=== PATIENT | male | born 1950 | race Caucasian/White ===

== ENCOUNTER 2017-10-02 14:20 | Outpatient (RCR) | payer OTHER, SELFPAY ==
--- NOTE | 2017-10-03 16:07 | PT.OIE ---
Current Diagnoses Benign paroxysmal vertigo, unspecified ear (10/02/17) Provider Visit Care Team Role Provider Type Vera Perales MD Attending Provider Physician Primary Care Provider Specialty: Internal Medicine Address: [address] [place] [address], [facility] Email: Physical Therapy Initial Evaluation PT-OP-A Visit Information Start: 10/02/17 06:35 Freq: Status: Active Protocol: Document 10/02/17 14:30 AMB (Rec: 10/03/17 09:35 AMB [email or web address]) Out-Patient Physical Therapy Visit Information Visit Information Visit Type Initial Evaluation Visit Start Time 14:30 Visit Stop Time 15:15 Total Visit Minutes 45 Visit Number 1 Evaluation Information Evaluation Date 10/02/17 PT-OP-B Current Condition Start: 10/02/17 06:35 Freq: Status: Active Protocol: Document 10/02/17 14:30 AMB (Rec: 10/03/17 09:35 AMB [email or web address]) Current Condition History of Current Condition Onset Date 3 weeks ago Current Complaints dizziness that has subsided History of Current Condition Filemon reports sudden onset dizziness when waking up in the morning about 3 weeks ago. He had what sounds like the Moe-Daroff exercise at Dr. Perales's office, but continues to have vertigo with getting into and out of bed, bending forward, and turning his head quickly. Over the past week that has slowly resolved. Of interest, he notes over the past few years he has had episodic pressure over the occiput, bilateral tinnitus, bilateral ear pressure, and intermittent feeling of palpitations with a feeling of almost passing out. He has had medical workup that has included brain MRI and cardiac monitoring that per the patient came back normal. He currently reports ear pressure , tinnitus, and head pressure, but these symptoms have come and gone over the past few years. The vertigo that started 3 weeks ago, has mostly passed over the past week. 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 PT-OP-C Subjective Start: 10/02/17 06:35 Freq: Status: Active Protocol: Document 10/02/17 14:30 AMB (Rec: 10/03/17 09:35 AMB [email or web address]) OP-PT Subjective Patient Comments Patient Comments Hypertension Patient Questionnaires Dizziness Handicap Inventory DHI Score 30 DHI Functional Impairment 20 to 39% Impaired (Score 20- 39) PT-OP-D Balance Start: 10/02/17 06:35 Freq: Status: Active Protocol: Document 10/02/17 14:30 AMB (Rec: 10/03/17 09:42 AMB [email or web address]) Balance Tests Romberg Romberg increased ankle sway Single Limb Standing Single Limb- Right 10 seconds Single Limb- Left 7 seconds Semi-Tandem Standing Semi-Tandem Standing Balance eyes open: WFL, eyes closed increased ankle sway Tandem Tandem Standing 3 seconds PT-OP-O Vestibular Start: 10/02/17 06:35 Freq: Status: Active Protocol: Document 10/02/17 14:30 AMB (Rec: 10/03/17 09:42 AMB [email or web address]) Vestibular Assessment Visual Testing Smooth Pursuits Horizontal WFL Smooth Pursuits Vertical WFL Saccades Horizontal WFL Saccades Vertical WFL Thrust Head Negative DVA (Line Degradation) 3 Positional Testing [place]-Hallpike Negative Left Negative Right Rolling Test Negative Left Negative Right Supine to Sit Negative Sit to Supine Negative Vestibular Function Tests Fukuda Test negative PT-OP-Q Treatments Start: 10/02/17 06:35 Freq: Status: Active Protocol: Document 10/02/17 14:30 AMB (Rec: 10/03/17 09:46 AMB [email or web address]) Neuro Re-Education Treatment Vestibular Rehabilitation VOR Retraining Details with modified tandem Distance From Target 5 feet Position modified tandem Other Activities 1 Details instruction in self Carol Lymphedema Treatment Patient Education Other Instruction in self Carol for future use, handouts provided. Instruction in anatomy of vestibular system. PT-OP-T Assessment and Plan Start: 10/02/17 06:35 Freq: Status: Active Protocol: Document 10/02/17 14:30 AMB (Rec: 10/03/17 16:07 AMB [email or web address]) Physical Therapy Assessment Rehab Potential Rehabilitation Potential Excellent Evaluation Complexity Number of Personal Factors/Comorbidities 1-2 Number of Body Systems Impaired 1-2 Clinical Presentation at Evaluation Stable Impairments Impairments Vestibular Goals One Impairment Dizziness Short Term Goal (STG) The patient will be independent with a self Carol manuever. STG Duration 4 weeks Assessment Summary Assessment The patient, while his symptoms sound like classic BPPV, did not show nystagmus with [place]-Hallpike testing. Given that his spinning symptoms have resolved for the past week, and he denies any vertigo with bed mobility for the past week, it sounds like what was BPPV has already cleared. His case will be open here for the next month, and he was instructed to call us if any symptoms return. Otherwise he will be discharged at the end of October. Physical Therapy Plan Hold Physical Therapy Reason For Hold Hold for next 30 days to make sure symptoms do not return, then discharge.
--- NOTE | 2017-10-03 16:09 | PT.OPPOC ---
Current Diagnoses Benign paroxysmal vertigo, unspecified ear (10/02/17) Provider Visit Care Team Role Provider Type Vera Perales MD Attending Provider Physician Primary Care Provider Specialty: Internal Medicine Address: [address] [place] [address], [id number] Email: Plan Of Care PT-OP-T Assessment and Plan Start: 10/02/17 06:35 Freq: Status: Active Protocol: Document 10/02/17 14:30 AMB (Rec: 10/03/17 16:07 AMB [email or web address]) Physical Therapy Assessment Rehab Potential Rehabilitation Potential Excellent Evaluation Complexity Number of Personal Factors/Comorbidities 1-2 Number of Body Systems Impaired 1-2 Clinical Presentation at Evaluation Stable Impairments Impairments Vestibular Goals One Impairment Dizziness Short Term Goal (STG) The patient will be independent with a self Carol manuever. STG Duration 4 weeks Assessment Summary Assessment The patient, while his symptoms sound like classic BPPV, did not show nystagmus with [place]-Hallpike testing. Given that his spinning symptoms have resolved for the past week, and he denies any vertigo with bed mobility for the past week, it sounds like what was BPPV has already cleared. His case will be open here for the next month, and he was instructed to call us if any symptoms return. Otherwise he will be discharged at the end of October. Physical Therapy Plan Frequency and Duration Frequency of Treatment 1x/Week Duration of Treatment 5 weeks Plan of Care Start Date 10/02/17 Plan of Care End Date 11/06/17 Therapeutic Interventions Therapeutic Interventions Balance Training Canalithic Repositioning Neuromuscular Re-education Vestibular Rehabilitation Hold Physical Therapy Reason For Hold Hold for next 30 days to make sure symptoms do not return, then discharge. Plan of Care Dates Plan of Care Start Date 10/02/17 Plan of Care End Date 11/06/17 Please Sign and Return: I have reviewed this Plan of Care and certify that the skilled therapy services above are required to meet the patient?s needs. Physician Signature Date Printed Name and Credentials Clinical Instructor Signature Printed Name and Credentials
--- NOTE | 2017-11-21 15:20 | PT.OPDS ---
Current Diagnoses Benign paroxysmal vertigo, unspecified ear (10/02/17) Provider Visit Care Team Role Provider Type Vera Perales MD Attending Provider Physician Primary Care Provider Specialty: Internal Medicine Address: [address] [place] [address], [facility] Email: Visit Number Visit Number 1 Discharge Summary PT-OP-B Current Condition Start: 10/02/17 06:35 Freq: Status: Active Protocol: Document 10/02/17 14:30 AMB (Rec: 10/03/17 09:35 AMB [email or web address]) Current Condition History of Current Condition Onset Date 3 weeks ago Current Complaints dizziness that has subsided History of Current Condition Filemon reports sudden onset dizziness when waking up in the morning about 3 weeks ago. He had what sounds like the Moe-Daroff exercise at Dr. Perales's office, but continues to have vertigo with getting into and out of bed, bending forward, and turning his head quickly. Over the past week that has slowly resolved. Of interest, he notes over the past few years he has had episodic pressure over the occiput, bilateral tinnitus, bilateral ear pressure, and intermittent feeling of palpitations with a feeling of almost passing out. He has had medical workup that has included brain MRI and cardiac monitoring that per the patient came back normal. He currently reports ear pressure , tinnitus, and head pressure, but these symptoms have come and gone over the past few years. The vertigo that started 3 weeks ago, has mostly passed over the past week. 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 PT-OP-C Subjective Start: 10/02/17 06:35 Freq: Status: Active Protocol: Document 10/02/17 14:30 AMB (Rec: 10/03/17 09:35 AMB [email or web address]) OP-PT Subjective Patient Comments Patient Comments Hypertension Patient Questionnaires Dizziness Handicap Inventory DHI Score 30 DHI Functional Impairment 20 to 39% Impaired (Score 20- 39) PT-OP-D Balance Start: 10/02/17 06:35 Freq: Status: Active Protocol: Document 10/02/17 14:30 AMB (Rec: 10/03/17 09:42 AMB [email or web address]) Balance Tests Romberg Romberg increased ankle sway Single Limb Standing Single Limb- Right 10 seconds Single Limb- Left 7 seconds Semi-Tandem Standing Semi-Tandem Standing Balance eyes open: WFL, eyes closed increased ankle sway Tandem Tandem Standing 3 seconds PT-OP-O Vestibular Start: 10/02/17 06:35 Freq: Status: Active Protocol: Document 10/02/17 14:30 AMB (Rec: 10/03/17 09:42 AMB [email or web address]) Vestibular Assessment Visual Testing Smooth Pursuits Horizontal WFL Smooth Pursuits Vertical WFL Saccades Horizontal WFL Saccades Vertical WFL Thrust Head Negative DVA (Line Degradation) 3 Positional Testing Karen-Hallpike Negative Left Negative Right Rolling Test Negative Left Negative Right Supine to Sit Negative Sit to Supine Negative Vestibular Function Tests Fukuda Test negative PT-OP-T Assessment and Plan Start: 10/02/17 06:35 Freq: Status: Active Protocol: Document 11/21/17 15:18 AMB (Rec: 11/21/17 15:20 AMB [email or web address]) Physical Therapy Plan Discharge Physical Therapy Discharge Comments The patient has not been seen since his evaluation. He was told to call back if he had any symptoms and since he has not called for a month and a half we will now discharge him .
== END 2018-01-11 14:10 ==
LOC: PHYS 14:20
PROVIDERS: PCP Internal Medicine; Visit Provider Internal Medicine
DX: H81.10 Benign paroxysmal vertigo, unspecified ear (principal)
CPT/HCPCS: 97112; 97161

== ENCOUNTER → 2017-10-18 10:52 | Outpatient (REF) | payer OTHER, SELFPAY ==
[2017-10-18 11:11] LABS: Alanine Aminotransferase 41 IU/L (21-72); Aspartate Aminotransferase 32 IU/L (17-59); BUN Creatinine Ratio 14.5 (6-22); Blood Urea Nitrogen 16 mg/dL (9-20); Calcium 9.9 mg/dL (8.4-10.2); Carbon Dioxide 29 mmol/L (22-32); Chloride 105 mmol/L (98-107); Cholesterol 155 mg/dL (140-199); Estimated Glomerular Filt Rate > 60.0 mL/min (>60); Glucose 96 mg/dL (80-110); HDL Cholesterol 42 mg/dL (40-60); HEMOLYSIS < 15 (0-50); LDL Cholesterol Calculated 94 mg/dL (<100); Potassium 3.9 mmol/L (3.4-5.1); Sodium 146 mmol/L (137-145); Triglycerides 94 mg/dL (35-150)
== END ==
LOC: LAB 10:52
PROVIDERS: PCP Internal Medicine; Visit Provider Internal Medicine
DX: E78.5 Hyperlipidemia, unspecified (principal); I10 Essential (primary) hypertension
CPT/HCPCS: 80048; 80061; 84450; 84460

== ENCOUNTER → 2017-12-25 11:17 | Outpatient (CLI) | payer OTHER, SELFPAY ==
--- NOTE | 2017-12-25 | DI.CT.S_ITS ---
PROCEDURE: CT ABDOMEN PELVIS WO/W CON INDICATIONS: GROSS HEMATURIA TECHNIQUE: Optional 5 mm thick noncontrast images acquired from the diaphragm to the symphysis pubis. After the administration of intravenous contrast, 5 mm thick images acquired from the diaphragm to the symphysis pubis after a 10-minute delay. 2 mm thick coronal and sagittal reformats were then performed of the kidneys and ureters. For radiation dose reduction, the following was used: automated exposure control, adjustment of mA and/or kV according to patient size. COMPARISON: [facility], CT, KIDNEY/ URETER/BLADDER, 12/05/2011, 13:44. [facility], CT, ANGIOGRAPHY CHEST AND ABDOMEN, 05/15/2016, 14:41. [facility], CT, ANGIOGRAPHY CHEST AND ABDOMEN, 10/24/2016, 14:41. FINDINGS: Image quality: Excellent. Lung bases: Lung bases are clear. Heart size is normal. Tiny hiatal hernia. Urinary system: Both kidneys are normal in size, without hydronephrosis or nephrolithiasis. Bilateral low density nodules are present, compatible with renal cysts, including multiple parapelvic cysts. There is a 1 cm enhancing cortical nodule in the mid right kidney. There is symmetrical bilateral renal enhancement. Renal calyces appear normal in morphology when filled with contrast. Opacified portions of both ureters demonstrate normal caliber. Bladder wall thickness is normal. No calcified bladder stones. Nodular appearance of bladder base may be secondary to markedly enlarged prostate protruding into the bladder base. Prostate measures 6.1 x 6.5 x 6.6 cm and demonstrates heterogeneous enhancement. Other solid organs: Liver is normal in size and enhancement. Gallbladder is normal. Biliary system is non dilated. Pancreas enhances normally. Spleen is normal in size and enhancement. No adrenal nodules. Peritoneum and bowel: Bowel loops demonstrate normal wall thickness and caliber. Normal appendix. No free fluid or air. Nodes and vessels: No retroperitoneal lymphadenopathy. Aorta and inferior vena cava are normal in caliber. Mild aortic calcification consistent with atherosclerosis. Abdominal wall: Small fat-containing periumbilical hernia is noted. Pelvis: No pathologic free pelvic fluid. No inguinal adenopathy. There is fat-containing left inguinal hernia. Bones: No suspicious bony lesions. No vertebral body compression fractures. IMPRESSION: 1. A small 1 cm enhancing cortical nodule in the mid right kidney. This could represent a small renal cell carcinoma. Because of its relative small size, apparent contrast enhancement could be caused by a volume averaging artifact. Ultrasound is suggested for initial evaluation to confirm solid nature of the mass. If the lesion is not visible on ultrasound, MRI may be helpful for further dilation. 2. Multiple renal cysts bilaterally including parapelvic cysts. 3. No renal stones or hydronephrosis. 4. Nodular appearance of bladder base is probably caused by mass effect from markedly enlarged prostate. In this patient with gross hematuria, cystoscopy is suggested. 5. Enlarged prostate with heterogeneous enhancement. Differential diagnosis includes 6. Small fat-containing periumbilical hernia and fat-containing left inguinal hernia. Dictated by: Manuela Aranda M.D. on 12/25/2017 at 17:26 Approved by: Manuela Aranda M.D. on 12/25/2017 at 17:44
[2017-12-25 12:22] LABS: BUN Creatinine Ratio 18.2 (6-22); Blood Urea Nitrogen 20 mg/dL (9-20); Estimated Glomerular Filt Rate > 60.0 mL/min (>60)
== END ==
PROVIDERS: PCP Internal Medicine; Visit Provider Urology
DX: R31.0 Gross hematuria (principal); N28.1 Cyst of kidney, acquired; N28.89 Other specified disorders of kidney and ureter; N40.0 Benign prostatic hyperplasia without lower urinary tract symptoms; K42.9 Umbilical hernia without obstruction or gangrene; K40.90 Unilateral inguinal hernia, without obstruction or gangrene, not specified as recurrent
CPT/HCPCS: 36415; 74178; 82565; 84520; Q9967

== ENCOUNTER → 2018-04-25 10:16 | Outpatient (CLI) | payer OTHER, SELFPAY ==
--- NOTE | 2018-04-25 11:00 | DI.NM.S_ITS ---
PATIENT NAME: MARIA G NI : 1950 EXAM DATE: 04/25/2018 10:53 ORD. : GURWINDER LINDQUIST M.D. CC: MODALITY: NM PATIENT TYPE: Out CONTRAST MEDIA: STATION ID: [id number] FLUORO TIME: PROCEDURE: NM REANNA PERF SPECT REST & STR Rest and exercise myocardial perfusion SPECT with gated imaging and ejection fraction RADIOPHARMACEUTICAL: 26.7 mCi Tc-99m sestamibi IV at rest and 27.2 mCi Tc- 99m sestamibi IV at peak exercise. A [id number] was performed. INDICATIONS: CHEST PAIN COMPARISON: None. CARDIAC STRESS: A standard Ryan treadmill exercise tolerance test was performed by the patient under the supervision of an attending staff. The patient exercised for 7 minutes and 30 seconds; functional aerobic impairment (RUDDY) is +5 %. Hemodynamic data: There is normal blood pressure and heart rate response to exercise stress. Patient achieved 104% of maximum predicted heart rate at peak exercise. Patient achieved 10 METS. Symptoms: Patient denied chest pain during exercise. EKG: No diagnostic EKG changes of ischemia; no ectopy. FINDINGS: Raw data: There is good myocardial labeling by radiotracer. No significant motion artifacts. Xost-bq-ykqaq ratio is 0.37 (normal is less than 0.38 for sestamibi tracer, and less than 0.50 for thallium tracer). Left ventricle function: Gated images demonstrate normal left ventricle wall thickening. No segmental wall motion abnormality. No transient ischemic dilation; TID is 0.90 (normal less than 1.3). The left ventricle resting end-diastolic volume is 96 mL. Left ventricle stress ejection fraction is 72%; normal values are above 45%. Myocardial perfusion: There is a moderate size, moderately severe fixed defect in the inferior wall from apex to the base which is present both at rest and with supine stress Continued Report - Page 2 of 2 PATIENT NAME: MARIA G NI : 1950 EXAM DATE: 04/25/2018 10:53 ORD. : GURWINDER LINDQUIST M.D. CC: MODALITY: NM PATIENT TYPE: Out CONTRAST MEDIA: STATION ID: [id number] FLUORO TIME: imaging and completely resolves on prone imaging, consistent with artifact. No other fixed or reversible perfusion defects. IMPRESSION: -Normal myocardial perfusion study. -Good exercise capacity. -Inferior wall artifact due to diaphragmatic attenuation as above. This was described on the prior study report as well. -No change compared to the report of perfusion study on 02/14/2012. Dictated by: Jesus Welsh on 04/26/2018 at 19:33 Approved by: Jesus Welsh on 04/26/2018 at 19:40
--- NOTE | 2018-04-25 11:35 | PM.TREADMILL ---
Cardiac Stress Test Report Referral & Results Date Patient Seen: 04/25/18 Requesting provider: Vera Perales Indication: Chest pain Rest ECG: Unremarkable Procedure Note: Today following both written and verbal informed consent the patient was exercised according to a standard Ryan protocol patient went for a total of 7 min 30 sec achieving a maximum heart rate of 161 maximum systolic blood pressure of 182. This is approximately 10.1 METS. Exercise was terminated at this point because of fatigue. Patient was also given Cardiolite through a previously started Hep-Lock IV by the nuclear plant construction worker approximately 1 minute prior to the cessation of exercise. No ST-T segment changes Normal heart rate and blood pressure response to exercise Occasional PVC Functional aerobic impairment rates about 5% on the active scale or-5% on the sedentary scale Impression: No evidence of ischemia with average exercise capacity Please see perfusion imaging report as well. Please note: Actual ECG tracings can be found in the PACS system.
== END ==
PROVIDERS: PCP Internal Medicine; Visit Provider Internal Medicine
DX: R07.9 Chest pain, unspecified (principal)
CPT/HCPCS: 78452; 93016; 93017; 93018; A9502

== ENCOUNTER → 2018-08-08 13:39 | Outpatient (CLI) | payer OTHER, SELFPAY ==
--- NOTE | 2018-08-08 | DI.ECHO.S_ITS ---
[facility] +---------+ [facility] +---------+ : : [address] [place] [address] : : : : [id number] : : : : Phone: [phone]+ Echocardiogram Report + + :Name: MARIA G NI Study Date: 08/08/2018 Height: 73 in : :[facility] Weight: 225 lb : : Gender: Male BSA: 2.3 m2 : :: 1950 Age: 67 yrs BP: 124/80 mmHg: :Reason For Study: THORACIC AO ANEURYSM : : Performed By: Jony Smith : :Referring: FABIO MELARA L : + + Interpretation Summary The ejection fraction is estimated to be 60-65%. The ascending aorta is mildly enlarged. There is no significant valvular heart disease. Procedure: A two-dimensional transthoracic echocardiogram with color flow and Doppler was performed. The study quality was technically adequate. There is no prior echocardiogram noted for this patient. The patient was in normal sinus rhythm during the exam. Left Ventricle: The left ventricle is normal in size. There is normal left ventricular wall thickness. The ejection fraction is estimated to be 60-65%. There are no focal wall motion abnormalities. Right Ventricle: The right ventricle is normal in size and function. Atria: The left atrium is mildly dilated. Right atrial size is normal. The interatrial septum is intact with no evidence for an atrial septal defect. Mitral Valve: The mitral valve is normal in structure and function. There is trace mitral regurgitation. Aortic Valve: The aortic valve is trileaflet. The aortic valve opens well. There is trace aortic regurgitation. Tricuspid Valve: The tricuspid valve is normal in structure and function. There is trace tricuspid regurgitation. The right ventricular systolic pressure is estimated to be at least 21 mmHg based on an estimated right atrial pressure of 3 mm Hg. Pulmonic Valve: The pulmonic valve is normal in structure and function. There is trace pulmonic regurgitation. Great Vessels: The aortic root is normal size. The ascending aorta is mildly enlarged. The pulmonary artery is normal size. The IVC is of normal diameter and collapses greater than 50% with a sniff. This suggests a low right atrial pressure of 3 mm Hg. Pericardium/ Pleura There is no pericardial effusion. There is no pleural effusion. MMode/2D Measurements & Calculations LVIDd: 4.8 cm LVOT diam: 2.4 cm LVIDs: 3.1 cm Ao root diam: 3.7 cm FS: 36.2 % Aortic Jxn: 2.9 cm EPSS: 0.21 cm asc Aorta Diam: 3.9 cm IVSd: 0.90 cm Ao Arch Diam (Prox Trans): 3.5 cm LVPWd: 0.86 cm LV webb. diameter/BSA (cm/m^2): 2.1 LV sys. diameter/BSA (cm/m^2): 1.4 LA dimension: 3.9 cm RA long axis: 4.6 cm LA A2 area: 25.1 cm2 RA area: 14.4 cm2 LA A4 area: 19.4 cm2 RA vol: 38.3 ml LA length (vol): 5.1 cm RA : 16.9 ml/m2 LA vol: 81.2 ml IVC diam: 1.6 cm LA vol index: 35.9 ml/m2 Doppler Measurements & Calculations Ao V2 max: 144.2 cm/sec LVOT Max Agustin: 120.1 cm/sec Ao V2 mean: 112.7 cm/sec LV V1 max P.8 mmHg Ao max P.3 mmHg LV V1 VTI: 26.0 cm Ao mean P.2 mmHg SLOANE(I,D): 3.6 cm2 Ao V2 VTI: 31.9 cm SLOANE(V,D): 3.7 cm2 sev ratio: 0.81 SLOANE indexed to BSA (cm^2/m^2): 1.6 MV E max agustin: 72.4 cm/sec TR max agustin: 211.9 cm/sec MV A max agustin: 73.3 cm/sec TR max P.0 mmHg MV E/A: 0.99 PA V2 max: 71.0 cm/sec Med Peak E' Agustin: 7.5 cm/sec PA V2 mean: 55.0 cm/sec E/E' med: 9.6 PA mean P.3 mmHg Lat Peak E' Agustin: 6.7 cm/sec PA pr(Accel): 36.6 mmHg E/E' lat: 10.8 PA Accel Time: 0.08 sec E/e' average: 10.2 MV dec time: 0.17 sec SV(LVOT): 115.2 ml Reading Physician:05:57 PM
--- NOTE | 2018-08-08 13:49 | DI.CT.S_ITS ---
PROCEDURE: CT SINUS SCREEN WO CON INDICATIONS: Facial pressure. Dizziness TECHNIQUE: Noncontrast 3.0 mm axial images acquired from the frontal sinuses to the mid-sella, with coronal and sagittal reformats. For radiation dose reduction, the following was used: automated exposure control, adjustment of mA and/or kV according to patient size. COMPARISON: None. FINDINGS: Image quality: Excellent. Sinuses: Prominent mucous retention cyst versus polyp is present in the left maxillary sinus and two, similar but smaller foci are noted within the right maxillary sinus. Ostiomeatal Complexes: Ostiomeatal complexes are patent. Minimal narrowing is noted on the left. No Kassy cells. Miscellaneous: Visualized intra-orbital contents are normal. No tim bullosa or paradoxical turbinate curvature. No nasal septal deviation. IMPRESSION: 1. Bilateral maxillary sinus mucus retention cyst versus polyps. 2. Mild appearance of left osteomeatal complex narrowing. Dictated by: Ann Shell M.D. on 08/08/2018 at 16:36 Approved by: Ann Shell M.D. on 08/08/2018 at 16:37
== END ==
PROVIDERS: PCP Internal Medicine; Visit Provider Internal Medicine
DX: I71.2 Thoracic aortic aneurysm, without rupture (principal); J32.0 Chronic maxillary sinusitis; R51 Headache; R42 Dizziness and giddiness; Z97.2 Presence of dental prosthetic device (complete) (partial)
CPT/HCPCS: 70486; 93306

== ENCOUNTER 2018-10-07 09:00 | Day surgery (SDC) | payer OTHER, SELFPAY ==
[2018-10-07 09:43] VITALS: BP 127/82; PULSE 64; RESP 15; TEMP 36.2; O2SAT 100; BMI 28.5
[2018-10-07] MEDS: SODIUM CHLORIDE 0.9% 1,000 ML 200 ML IV (10:02)
--- NOTE | 2018-10-07 10:03 | PM.HP.1 ---
History of Present Illness Date Patient Seen: 10/07/18 Time Patient Seen: 10:03 Chief complaint: [id number] Narrative: Patient presents for colorectal screening. They had a previous colonoscopy 5 years ago that demonstrated an adenomatous polyp. On further history denies any recent gastrointestinal symptoms. No nausea, vomiting, abdominal pain, loss of appetite, unexplained weight loss, change in bowel habits, diarrhea, constipation, melena, hematochezia, or bright red blood per rectum. Patient History Medical History History of inguinal hernia (Resolved) Social History household members: spouse Smoking Status: Former smoker Family & Social History Social History: household members spouse Tobacco & Substance use: Smoking Status Former smoker Meds Home Medications Medication Instructions Recorded Confirmed Type alprazolam 0.25 mg PO Q8HP PRN #0 10/24/16 10/07/18 History chlorthalidone 12.5 mg PO QDAY #0 10/24/16 10/07/18 History amlodipine 10 mg tablet 10 mg PO DAILY 09/25/18 10/07/18 History atorvastatin 40 mg tablet 40 mg PO DAILY 09/25/18 10/07/18 History lisinopril 40 mg tablet 40 mg PO DAILY 09/25/18 10/07/18 History metoprolol succinate ER 50 mg 50 mg PO DAILY 09/25/18 10/07/18 History tablet,extended release 24 hr tadalafil 5 mg tablet 5 mg PO DAILY 09/25/18 10/07/18 History ciprofloxacin HCl 250 mg PO BID 10/07/18 10/07/18 History Allergies Allergy/AdvReac Type Severity Reaction Status Date / Time Penicillins [PENICILLINS] Allergy Intermediate HIVES Verified 10/07/18 09:43 Sulfa (Sulfonamide Allergy Intermediate HIVES Verified 10/07/18 09:43 Antibiotics) [SULFA (SULFONAMIDE ANTIBIOTICS)] hydrochlorothiazide Allergy Unknown Verified 10/07/18 09:43 [HYDROCHLOROTHIAZIDE] Review of Systems Review of Systems All systems reviewed & are unremarkable except as noted in HPI and below Exam Vital Signs (past 8 hours): - 10/07/18 09:43 Temperature 97.2 F L Pulse Rate 64 Respiratory Rate 15 Blood Pressure 127/82 Pulse Oximetry 100 Oxygen Delivery Method Room Air Narrative Exam Narrative: General-adult male no acute distress, well nourished HEENT-moist mucous membranes, no scleral icterus Neck-supple with full range of motion, no lymphadenopathy Chest- no labored respirations, clear to auscultation bilaterally Cardiac-regular rate and rhythm Abdomen-soft, nontender, non distended Extremities-no edema, warm well perfused Neurological-alert and oriented x 3. No focal deficits Skin-normal temperature and turgor, no rashes or ulcers Assessment & Plan (1) Screening for colorectal cancer: Current visit: Yes Status: Acute Assessment & Plan narrative: Patient is requiring colorectal screening. Colonoscopy is recommended. Technical details were discussed. Risks, benefits, alternatives explained. Risks including but not limited to sedation, aspiration, bleeding, pain, missed lesion, incomplete examination, need for further radiographic studies, colonic perforation, need for major abdominal surgery, and all attendant risks major surgery were discussed at length. All questions were answered to their satisfaction, and they voiced understanding.
[2018-10-07] MEDS: MIDAZOLAM 5 MG/5 ML VIAL IV (10:32)
[2018-10-07] MEDS: fentaNYL 250 MCG/5 ML INJ IV (10:32)
--- NOTE | 2018-10-07 10:42 | PM.OP.ENDO ---
Operative Date/Time/Diagnoses Date of procedure: 10/07/18 Time of procedure: 10:43 Pre-op diagnosis: Screening colonoscopy. Adenomatous polyp 5 years ago Post-op diagnosis: same Procedure & Clinicians Study performed: Colonoscopy Same procedure as scheduled: Yes Indications: 68-year-old male with a previous adenomatous polyp on colonoscopy 5 years ago returns for routine screening. Surgeon: Lavon Collado Procedure Notes SCOAP/Timeout: Performed Procedure in detail: A digital rectal exam was performed which demonstrated a normal prostate and no masses. Scope was carefully inserted into the rectum and advanced through the colon. The ileocecal valve was reached. The scope was carefully withdrawn. The colon was normal in its appearance. The quality of the prep was excellent. There were no polyps, no masses, no diverticulosis. Scope withdrawal time: 9 Sedation minutes: 28 Specimen(s): none sent Complications: none Impression: Normal colonoscopy Recommendations: Colonscopy in 10 years Disposition: same day surgery
[2018-10-07 10:44] VITALS: BP 100/62; PULSE 63; RESP 16; TEMP 36.3; O2SAT 94
[2018-10-07 10:50] VITALS: BP 99/68; PULSE 64; RESP 16; O2SAT 94
[2018-10-07 10:55] VITALS: BP 105/71; PULSE 74; RESP 17; O2SAT 94
[2018-10-07 11:02] VITALS: BP 106/65; PULSE 87; RESP 15; TEMP 36.4; O2SAT 94
[2018-10-07 11:14] VITALS: BP 102/66; PULSE 80; RESP 16; O2SAT 94
== END 2018-10-07 11:30 | disposition home or self-care (01) ==
PROVIDERS: PCP Internal Medicine; Visit Provider Surgery
PROC: 0DJD8ZZ Inspection of Lower Intestinal Tract, Via Natural or Artificial Opening Endoscopic (ICD-10-PCS; CPT 45378; principal; 2018-10-07 10:45)
DX: Z86.010 Personal history of colon polyps (principal); Z87.891 Personal history of nicotine dependence
CPT/HCPCS: G0105; 99152; J2250; J3010

== ENCOUNTER → 2018-11-29 18:45 | Outpatient (ROUT) | payer OTHER, SELFPAY ==
[2018-11-29 18:59] LABS: Add Manual Diff / Slide Review NO; Basophils Absolute Auto 100 /uL (0-100); Basophils Percent Auto 1.1 % (0-2); Eosinophils Absolute Auto 100 /uL (0-450); Eosinophils Percent Auto 2.2 % (2-4); Hematocrit 44.3 % (41-53); Hemoglobin 15.6 g/dL (13.5-17.5); Lymphocytes Absolute Auto 1300 /uL (1100-4500); Lymphocytes Percent Auto 23.2 % (25-40); Mean Corpuscular HGB Conc 35.2 % (30-36); Mean Corpuscular Hemoglobin 30.5 PG (26-34); Mean Corpuscular Volume 86.7 fL (80-100); Monocytes Absolute Auto 400 /uL (0-900); Monocytes Percent Auto 7.9 % (3-14); Neutrophils Absolute Auto 3700 /uL (1500-7000); Neutrophils Percent Auto 65.6 % (50-75); Platelet Count 270 X10^3/uL (150-400); Red Blood Cell Count 5.11 X10^6/uL (4.5-5.9); Red Cell Distribution Width 13.4 % (11.6-14.8); White Blood Cell Count 5.7 X10^3/uL (4.5-11.0)
[2018-11-29 19:04] LABS: Alanine Aminotransferase 43 IU/L (21-72); Albumin 4.5 g/dL (3.5-5.0); Albumin Globulin Ratio 1.7 (1.0-2.8); Alkaline Phosphatase 50 U/L (38-126); Aspartate Aminotransferase 35 IU/L (17-59); BUN Creatinine Ratio 13.3 (6-22); Bilirubin Total 1.1 mg/dL (0.2-1.3); Blood Urea Nitrogen 16 mg/dL (9-20); Calcium 9.8 mg/dL (8.4-10.2); Carbon Dioxide 28 mmol/L (22-32); Chloride 101 mmol/L (98-107); Estimated Glomerular Filt Rate > 60.0 mL/min (>60); Globulin 2.6 g/dL (1.7-4.1); Glucose 100 mg/dL (80-110); HEMOLYSIS < 15 (0-50); Potassium 3.4 mmol/L (3.4-5.1); Sodium 141 mmol/L (137-145); Total Protein 7.1 g/dL (6.3-8.2)
[2018-11-29 19:51] LABS: Vitamin B12 628 pg/mL (239-931)
[2018-11-29 19:53] LABS: Vitamin D 25 Hydroxy (D3) 39.6 ng/mL (30.0-100.0)
[2018-11-29 20:12] LABS: TSH w/ Reflex to FT4 1.42 uIU/mL (0.47-4.68)
== END ==
PROVIDERS: PCP Internal Medicine; Visit Provider Physician Assistant
DX: R53.83 Other fatigue (principal); I10 Essential (primary) hypertension; E55.9 Vitamin D deficiency, unspecified; E53.8 Deficiency of other specified B group vitamins
CPT/HCPCS: 80053; 82306; 82607; 84443; 85025

== ENCOUNTER 2018-12-18 04:08 | Emergency (ER) | payer OTHER, SELFPAY ==
--- NOTE | 2018-12-18 04:10 | DI.RAD.S_ITS ---
PROCEDURE: XR CHEST 1V INDICATIONS: chest pain TECHNIQUE: One view of the chest was acquired. COMPARISON: [facility], , CHEST 1 VIEW, 03/08/2017, 17:00. FINDINGS: Surgical changes and devices: None. Lungs and pleura: Lungs are clear. No pleural effusions or pneumothorax. Mediastinum: Mediastinal contours appear normal. Heart size is normal. Bones and chest wall: No suspicious bony lesions. Overlying soft tissues appear unremarkable. IMPRESSION: No acute cardiopulmonary disease process. Dictated by: Jhoana Siegel MD, PhD on 12/18/2018 at 8:42 Approved by: Jhoana Siegel MD, PhD on 12/18/2018 at 8:43
--- NOTE | 2018-12-18 04:16 | ED.GENADULT ---
HPI - General Adult General Chief complaint: Chest Pain Stated complaint: left arm stiff, sweating, worried about heart Time Seen by Provider: 12/18/18 04:09 Source: patient Mode of arrival: Ambulatory Limitations: no limitations History of Present Illness HPI narrative: 68-year-old male here for evaluation of multiple complaints to include sharp left-sided chest discomfort. He states that over the past couple days he has had some chest congestion and coughing. They sharpness in his chest has also been over the past couple days as well. He also noticed that last night he had some concerns that his left arm felt very heavy. Has not tried anything for symptoms prior to arrival. Has never had a heart attack in the past. States that his symptoms were not worse with movement or palpation Related Data Home Medications Medication Instructions Recorded Confirmed alprazolam 0.25 mg PO Q8HP PRN #0 10/24/16 10/07/18 chlorthalidone 12.5 mg PO QDAY #0 10/24/16 10/07/18 amlodipine 10 mg tablet 10 mg PO DAILY 09/25/18 10/07/18 atorvastatin 40 mg tablet 40 mg PO DAILY 09/25/18 10/07/18 lisinopril 40 mg tablet 40 mg PO DAILY 09/25/18 10/07/18 metoprolol succinate 50 mg 50 mg PO DAILY 09/25/18 10/07/18 tablet,extended release 24 hr tadalafil 5 mg tablet 5 mg PO DAILY 09/25/18 10/07/18 ciprofloxacin HCl 250 mg PO BID 10/07/18 10/07/18 Allergies Allergy/AdvReac Type Severity Reaction Status Date / Time Penicillins [PENICILLINS] Allergy Intermediate HIVES Verified 10/07/18 09:43 Sulfa (Sulfonamide Allergy Intermediate HIVES Verified 10/07/18 09:43 Antibiotics) [SULFA (SULFONAMIDE ANTIBIOTICS)] hydrochlorothiazide Allergy Unknown Verified 10/07/18 09:43 [HYDROCHLOROTHIAZIDE] Review of Systems Constitutional Constitutional: Denies fever(s) and Denies headache(s) ENT Ears, Nose, Mouth, and Throat: Denies headache(s) Cardiovascular Cardiovascular: Reports chest pain (Sharp left-sided chest pain) and Denies dyspnea Respiratory Respiratory: Reports chest congestion and Denies dyspnea Gastrointestinal Gastrointestinal: Denies abdominal pain Musculoskeletal Comments: Left arm heaviness Integumentary/Breasts Skin/Breast: Denies lesions and Denies rash Neurologic Neurologic: Denies behavioral changes and Denies headache(s) Psychiatric Psychiatric: Denies behavioral changes Hematologic/Lymphatic Hematologic/Lymphatic: Denies easy bleeding and Denies easy bruising Patient History Medical History (Updated 12/18/18 @ 05:20 by Brendan Ba DO) Atypical chest pain (Inactive) Chest wall pain (Inactive) High cholesterol (Inactive) History of inguinal hernia (Resolved) HTN (hypertension) (Inactive) Palpitations (Inactive) Screening for colorectal cancer (Inactive) Transient ischemic attack, acute (Inactive) Surgical History (Updated 12/18/18 @ 05:16 by Brendan Ba DO) H/O hernia repair (Inactive) Social History household members: spouse Smoking Status: Former smoker Exam Initial Vital Signs Initial Vital Signs: Vital Signs Temperature 98.5 F 12/18/18 04:17 Pulse Rate 66 12/18/18 04:17 Respiratory Rate 16 12/18/18 04:17 Blood Pressure 138/87 12/18/18 04:17 Pulse Oximetry 99 12/18/18 04:17 Const General: cooperative and comfortable Orientation: alert, awake and oriented x3 HENMT Head: normal to inspection and normocephalic Chest Chest: No crepitus and No tenderness Resp Effort & Inspection: normal respiratory effort Auscultation: clear to auscultation bilaterally Cardio Rate: regular rate Rhythm: regular rhythm GI Inspection: non-distended Palpation: soft and No firm Skin Lesions: no lesions Rashes: no rashes Neuro General: alert and awake Cognition: normal cognition Speech: speech normal Motor: muscle tone normal throughout Extrem General: normal to inspection and capillary refill normal Psych Appearance: grossly normal and well kempt Course Orders Ordered: ED Orders 12/18/18 04:10 XR chest 1V Stat 12/18/18 04:11 EKG-12 Lead Stat 12/18/18 04:26 Basic Metabolic Panel Stat Complete Blood Count AUTO DIFF Stat Troponin I Stat Vital Signs Vital signs: Vital Signs - 8 hr 12/18/18 04:17 Temperature 98.5 F Pulse Rate 66 Respiratory Rate 16 Blood Pressure 138/87 Pulse Oximetry 99 Medical Decision Making Lab Data Lab results reviewed: Yes I reviewed the patient's lab results. Result diagrams: 12/18/18 04:26 12/18/18 04:26 Labs: Lab Results 12/18/18 12/18/18 Range/Units 04:26 04:26 WBC 5.4 (4.5-11.0) X10^3/uL RBC 5.08 (4.5-5.9) X10^6/uL Hgb 15.6 (13.5-17.5) g/dL Hct 43.9 (41-53) % MCV 86.3 (80-100) fL MCH 30.7 (26-34) PG MCHC 35.6 (30-36) % RDW 13.4 (11.6-14.8) % Plt Count 268 (150-400) X10^3/uL Neut % (Auto) 57.0 (50-75) % Lymph % (Auto) 27.8 (25-40) % Branch % (Auto) 10.0 (3-14) % Eos % (Auto) 3.9 (2-4) % Baso % (Auto) 1.3 (0-2) % Neut # (Auto) 3000 (4657-4819) /uL Lymph # (Auto) 1500 (9524-5799) /uL Branch # (Auto) 500 (0-900) /uL Eos # (Auto) 200 (0-450) /uL Baso # (Auto) 100 (0-100) /uL Sodium 142 (137-145) mmol/L Potassium 3.6 (3.4-5.1) mmol/L Chloride 103 (98-107) mmol/L Carbon Dioxide 29 (22-32) mmol/L BUN 28 H (9-20) mg/dL Creatinine 1.30 H (0.66-1.25) mg/dL Estimated GFR 55.2 L (>60) mL/min BUN/Creatinine Ratio 21.5 (6-22) Glucose 112 H (80-110) mg/dL Calcium 9.8 (8.4-10.2) mg/dL Troponin I < 0.012 (0.01-0.034) ng/mL Imaging Data Chest x-ray: Attestation: I personally reviewed and interpreted this imaging study as follows: My impression: No pneumonia, no pneumothorax ECG Data Attestation: I personally reviewed and interpreted this ECG as follows: Prior ECG tracings: not available for review Interpretation: Sinus rhythm Normal axis Ventricular rate is [address] T wave changes MDM Narrative Medical decision making narrative: Patient had a perfusion study in April of this year. Had an echo in July of this year. Also had a exercise stress test in April of this year. His EKG is unremarkable. Patient has had symptoms for the past couple days. His chest x-ray is negative. Troponins negative. It was sharp left-sided chest discomfort. I have low suspicion for ACS. Patient is not tachycardic. Not hypoxic. Not tachypneic. I discussed all of the findings with the patient. We discussed his risk factors with regard to coronary artery disease. Feel that we can hold on further workup for now. Informed him that he should contact his primary provider for follow-up. He expressed understanding and agreement with plan. Discharge Plan Departure Patient Disposition: Home Clinical Impression: Atypical chest pain Instructions: DI for Atypical Chest Pain Activity Restrictions/Additional Instructions: Continue all of your medications as directed. I do recommend you contact your primary provider for follow-up. Return to the emergency department for any new or worsening symptoms Prescriptions: No Action chlorthalidone 25 MG tablet 12.5 mg PO QDAY Qty: 0 RF: 0 alprazolam 0.25 MG tablet 0.25 mg PO Q8HP PRN (Reason: Anxiety) Qty: 0 RF: 0 ciprofloxacin HCl 250 mg Tablet 250 mg PO BID RF: 0 atorvastatin 40 mg tablet 40 mg PO DAILY RF: 0 metoprolol succinate 50 mg tablet extended release 24 hr 50 mg PO DAILY RF: 0 lisinopril 40 mg tablet 40 mg PO DAILY RF: 0 tadalafil [Cialis] 5 mg tablet 5 mg PO DAILY RF: 0 amlodipine 10 mg tablet 10 mg PO DAILY RF: 0 Referrals: Vera Perales MD [Primary Care Provider] -
[2018-12-18 04:17] VITALS: BP 138/87; PULSE 66; RESP 16; TEMP 36.9; O2SAT 99; BMI 29.7
[2018-12-18 04:35] LABS: Add Manual Diff / Slide Review NO; Basophils Absolute Auto 100 /uL (0-100); Basophils Percent Auto 1.3 % (0-2); Eosinophils Absolute Auto 200 /uL (0-450); Eosinophils Percent Auto 3.9 % (2-4); Hematocrit 43.9 % (41-53); Hemoglobin 15.6 g/dL (13.5-17.5); Lymphocytes Absolute Auto 1500 /uL (1100-4500); Lymphocytes Percent Auto 27.8 % (25-40); Mean Corpuscular HGB Conc 35.6 % (30-36); Mean Corpuscular Hemoglobin 30.7 PG (26-34); Mean Corpuscular Volume 86.3 fL (80-100); Monocytes Absolute Auto 500 /uL (0-900); Neutrophils Absolute Auto 3000 /uL (1500-7000); Platelet Count 268 X10^3/uL (150-400); Red Blood Cell Count 5.08 X10^6/uL (4.5-5.9); Red Cell Distribution Width 13.4 % (11.6-14.8); White Blood Cell Count 5.4 X10^3/uL (4.5-11.0)
[2018-12-18 04:44] LABS: BUN Creatinine Ratio 21.5 (6-22); Blood Urea Nitrogen 28 mg/dL (9-20); Calcium 9.8 mg/dL (8.4-10.2); Carbon Dioxide 29 mmol/L (22-32); Chloride 103 mmol/L (98-107); Estimated Glomerular Filt Rate 55.2 mL/min (>60); Glucose 112 mg/dL (80-110); HEMOLYSIS < 15 (0-50); Potassium 3.6 mmol/L (3.4-5.1); Sodium 142 mmol/L (137-145)
[2018-12-18 04:56] LABS: Troponin I < 0.012 ng/mL (0.01-0.034)
[2018-12-18 05:16] VITALS: BP 114/71; PULSE 64; RESP 12; O2SAT 95
== END 2018-12-18 05:28 | disposition home or self-care (01) ==
PROVIDERS: Emergency Provider Emergency Medicine; PCP Internal Medicine
DX: R07.89 Other chest pain (principal); R05 Cough
CPT/HCPCS: 36415; 71045; 80048; 84484; 85025; 93005; 93010; 99283; 99285

== ENCOUNTER → 2019-06-30 13:37 | Outpatient (CLI) | payer OTHER, MEDICARE, SELFPAY ==
--- NOTE | 2019-06-30 | DI.ECHO.S_ITS ---
[facility] +---------+ : : [address] : : : : [id number] : : : : Phone: [phone] Echocardiogram Report + + :Name: MARIA G NI Study Date: 06/30/2019 Height: 71 in : :[facility] Weight: 230 lb : : Gender: Male BSA: 2.2 m2 : :: 1950 Age: 68 yrs BP: 142/78 mmHg: :Reason For Study: Chest pain : :Ordering Physician: Gurwinder PeralesPerformed By: Cristin Jones : :Referring: GURWINDER PERALES : + + Interpretation Summary The left ventricle is normal in size and wall thickness. The ejection fraction is estimated to be 60-65%. Diastolic parameters suggest probable normal left ventricular diastolic function and normal filling pressures. The right ventricle is normal in size and function. The right ventricular systolic pressure is estimated to be at least 24 mmHg based on an estimated right atrial pressure of 3 mm Hg. The left atrial size is normal. Right atrial size is normal. There is mild mitral regurgitation. There is no other significant valvular heart disease. The ascending aorta is mildly enlarged. No significant changes since prior study. Procedure: A two-dimensional transthoracic echocardiogram with color flow and Doppler was performed. The study quality was technically adequate. Comparison is made with the echocardiogram of 08/08/2018. The patient was in normal sinus rhythm during the exam. The patient had occasional PVCs during the exam. The heart rate ranged between 59-66 bpm during the study. Left Ventricle: The left ventricle is normal in size and wall thickness. The ejection fraction is estimated to be 60-65%. Diastolic parameters suggest probable normal left ventricular diastolic function and normal filling pressures. Right Ventricle: The right ventricle is normal in size and function. Atria: The left atrial size is normal. Right atrial size is normal. There is no Doppler evidence for an interatrial shunt. Mitral Valve: The mitral valve is normal in structure and function. There is mild mitral regurgitation. Aortic Valve: The aortic valve is not well visualized. The aortic valve opens well. There is no aortic valve stenosis. No aortic regurgitation is present. Tricuspid Valve: The tricuspid valve is normal in structure and function. There is mild tricuspid regurgitation. The right ventricular systolic pressure is estimated to be at least 24 mmHg based on an estimated right atrial pressure of 3 mm Hg. Pulmonic Valve: The pulmonic valve is not well seen, but is grossly normal. There is no pulmonic valvular regurgitation. There is no other significant valvular heart disease. Great Vessels: The aortic root is normal size. The ascending aorta is mildly enlarged. The IVC is of normal diameter and collapses greater than 50% with a sniff. This suggests a low right atrial pressure of 3 mm Hg. Pericardium/ Pleura There is no pericardial effusion. There is no pleural effusion. MMode/2D Measurements & Calculations LVIDd: 4.8 cm LVOT diam: 2.3 cm LVIDs: 3.1 cm Ao root diam: 3.5 cm FS: 34.9 % asc Aorta Diam: 3.8 cm EPSS: 0.46 cm IVSd: 0.94 cm LVPWd: 0.84 cm LV webb. diameter/BSA (cm/m^2): 2.2 LV sys. diameter/BSA (cm/m^2): 1.4 LA A2 area: 17.7 cm2 RA long axis: 4.6 cm LA A4 area: 14.0 cm2 RA area: 13.8 cm2 LA length (vol): 4.6 cm RA vol: 35.3 ml LA vol: 45.7 ml RA : 15.8 ml/m2 LA vol index: 20.4 ml/m2 IVC diam: 1.7 cm RVD1 (basal): 3.8 cm TAPSE: 1.9 cm Doppler Measurements & Calculations Ao V2 max: 150.8 cm/sec LVOT Max Agustin: 143.8 cm/sec Ao V2 mean: 95.7 cm/sec LV V1 max P.3 mmHg Ao max P.1 mmHg LV V1 VTI: 28.6 cm Ao mean P.4 mmHg SLOANE(I,D): 4.0 cm2 Ao V2 VTI: 29.8 cm SLOANE(V,D): 4.0 cm2 sev ratio: 0.96 SLOANE indexed to BSA (cm^2/m^2): 1.8 MV E max agustin: 74.9 cm/sec TR max agustin: 228.6 cm/sec MV A max agustin: 76.5 cm/sec TR max P.9 mmHg MV E/A: 0.98 PA V2 max: 74.3 cm/sec MV dec time: 0.19 sec PA V2 mean: 54.5 cm/sec PA mean P.4 mmHg SV(LVOT): 120.3 ml Reading Physician:02:52 PM
== END ==
PROVIDERS: PCP Internal Medicine; Referring Provider Internal Medicine; Visit Provider Internal Medicine
DX: I08.1 Rheumatic disorders of both mitral and tricuspid valves (principal); I77.89 Other specified disorders of arteries and arterioles; R07.9 Chest pain, unspecified
CPT/HCPCS: 93306

== ENCOUNTER → 2019-08-20 11:43 | Outpatient (CLI) | payer OTHER, MEDICARE, SELFPAY ==
[2019-08-24 10:41] LABS: COVID19 Sendout Not Detected (Not Detected)
== END ==
PROVIDERS: PCP Internal Medicine; Visit Provider Physician Assistant
DX: J02.9 Acute pharyngitis, unspecified (principal)
CPT/HCPCS: 87635

== ENCOUNTER → 2019-11-21 10:35 | Outpatient (CLI) | payer OTHER, MEDICARE, SELFPAY | PROVIDERS: PCP Internal Medicine; Referring Provider Student in an Organized Health Care Education/Training Program; Visit Provider Student in an Organized Health Care Education/Training Program | DX: R30.0 Dysuria (principal) | CPT/HCPCS: 87086 ==

== ENCOUNTER → 2019-12-17 13:05 | Outpatient (CLI) | payer OTHER, MEDICARE, SELFPAY ==
--- NOTE | 2019-12-17 | DI.CT.S_ITS ---
PROCEDURE: CT CHEST W CON INDICATIONS: Chest pain. Family history of aneurysm. TECHNIQUE: After the administration of intravenous contrast, 5 mm thick sections acquired from the pulmonary apices to the posterior costophrenic angles. 1 mm axial lung, 5 mm thick coronal and sagittal reformats and 7 mm axial MIP were acquired. For radiation dose reduction, the following was used: automated exposure control, adjustment of mA and/or kV according to patient size. COMPARISON: [facility], CT, ANGIOGRAPHY CHEST AND ABDOMEN, 05/15/2016, 14:41. [facility], CT, ANGIOGRAPHY CHEST AND ABDOMEN, 10/24/2016, 14:41. [facility], CR, CHEST 1 VIEW, 03/08/2017, 17:00. FINDINGS: Image quality: Excellent. Lungs and pleura: There is a left diaphragmatic hernia. No acute air space opacities. There is a spiculated, sub solid nodule in the right upper lobe measuring 8 mm (series 3, image 71), similar in size but slightly increased in density when compared to the last chest CT dated 05/15/2016. A 5 x 8 mm scar-like density in the left upper lobe is also noted, slightly decreased in size. No pleural effusions or pneumothorax. Central and peripheral airways are patent and normal in caliber. Mediastinum: Heart size is normal. No pericardial effusion. There is mild coronary artery atherosclerosis. No mediastinal or hilar adenopathy by size criteria. Thoracic aorta and central pulmonary arteries are normal in size. Esophagus is normal in caliber. Tiny hiatal hernia. Bones and chest wall: No suspicious bony lesions. No vertebral body compression fractures. No axillary or supraclavicular adenopathy by size criteria. Thyroid gland is normal. Abdomen: There is a 2 cm exophytic cyst in the superior pole of the left kidney. Hepatic steatosis. IMPRESSION: 1. A cause for chest pain is not definitively identified. No aortic aneurysms. 2. Mild coronary artery atherosclerosis. 3. An 8 mm spiculated, subsolid nodular density in the right upper lobe has demonstrates increased density of the unchanged in size. A follow-up CT is suggested in 12 months. 4. Stable scar-like density in the left upper lobe. Fleischner Society criteria for SUB-SOLID lung nodule followup. Solitary pure ground-glass nodules5 mm or lessNo followup needed. >5 mm3 mo follow-up CT to confirm persistence. Then annual CT for 3 years. Part-solid nodules3 mo follow-up CT to confirm persistence. If persistent with solid component <5 mm, annual CT for at least 3 years. If solid component is 5 mm or more, biopsy or surgical resection. Consider PET-CT for lesions > 10 mm. Multiple sub-solid nodulesPure ground glass nodules [address] at 2 and 4 years. Pure ground glass nodules >5 mm without dominant lesion. [address] to confirm persistence, then annual followup CT for at least 3 years. Dominant nodule(s) with part-solid or solid component. [address] to confirm persistence. If persistent, consider biopsy or surgical resection, jennifer if lesions have >5 mm solid component. Dictated by: Manuela Aranda M.D. on 12/17/2019 at 16:53 Approved by: Manuela Aranda M.D. on 12/17/2019 at 17:57
[2019-12-17 13:44] LABS: Alanine Aminotransferase 32 IU/L (<50); Aspartate Aminotransferase 35 IU/L (17-59); Cholesterol 162 mg/dL (140-199); HDL Cholesterol 34 mg/dL (40-60); LDL Cholesterol Calculated 91 mg/dL (<100); Triglycerides 184 mg/dL (35-150)
[2019-12-17 14:05] LABS: Estimated Glomerular Filt Rate 50.5 mL/min (>60)
== END ==
PROVIDERS: PCP Internal Medicine; Referring Provider Internal Medicine; Visit Provider Internal Medicine
DX: R07.9 Chest pain, unspecified (principal); R91.1 Solitary pulmonary nodule; I25.10 Atherosclerotic heart disease of native coronary artery without angina pectoris; E78.5 Hyperlipidemia, unspecified; K44.9 Diaphragmatic hernia without obstruction or gangrene; N28.1 Cyst of kidney, acquired; K76.0 Fatty (change of) liver, not elsewhere classified; Z84.89 Family history of other specified conditions
CPT/HCPCS: 36415; 71260; 80061; 82565; 84450; 84460; Q9967

== ENCOUNTER → 2020-07-15 19:18 | Outpatient (ROUT) | payer OTHER, MEDICARE, SELFPAY ==
[2020-07-15 19:24] LABS: Hematocrit 44.8 % (41-53); Mean Corpuscular HGB Conc 35.8 % (30-36); Mean Corpuscular Hemoglobin 30.8 PG (26-34); Mean Corpuscular Volume 86.1 fL (80-100); Platelet Count 270 X10^3/uL (150-400); Red Cell Distribution Width 12.9 % (11.6-14.8)
[2020-07-15 19:32] LABS: Potassium 3.9 mmol/L (3.4-5.1)
[2020-07-15 19:35] LABS: Alanine Aminotransferase 32 IU/L (<50); Albumin 4.7 g/dL (3.5-5.0); Albumin Globulin Ratio 1.7 (1.0-2.8); Alkaline Phosphatase 59 U/L (38-126); Aspartate Aminotransferase 42 IU/L (17-59); Bilirubin Total 1.1 mg/dL (0.2-1.3); Blood Urea Nitrogen 16 mg/dL (9-20); C-Reactive Protein Quant < 0.5 mg/dL (<1.0); Carbon Dioxide 24 mmol/L (22-32); Chloride 103 mmol/L (98-107); Estimated Glomerular Filt Rate > 60.0 mL/min (>60); Globulin 2.8 g/dL (1.7-4.1); Glucose 94 mg/dL (80-110); HEMOLYSIS 21 (0-50); Sodium 138 mmol/L (137-145); Total Protein 7.5 g/dL (6.3-8.2)
[2020-07-15 20:03] LABS: TSH w/ Reflex to FT4 1.49 uIU/mL (0.47-4.68)
[2020-07-16 05:30] LABS: Vitamin B12 634 pg/mL (239-931)
== END ==
PROVIDERS: PCP Internal Medicine; Visit Provider Internal Medicine
DX: R53.82 Chronic fatigue, unspecified (principal); I10 Essential (primary) hypertension
CPT/HCPCS: 80053; 82607; 84443; 85027; 86140

== ENCOUNTER 2021-07-31 17:03 | Emergency (ER) | payer OTHER, MEDICARE, SELFPAY ==
[2021-07-31 17:26] VITALS: BP 167/96; PULSE 83; RESP 20; TEMP 36.3; O2SAT 97; BMI 30.9
--- NOTE | 2021-07-31 18:43 | ED.EXTPRO ---
HPI - Extremity Problem General Chief complaint: Extremity Problem,Nontraumatic Stated complaint: pain in left leg behind thigh Time Seen by Provider: 07/31/21 18:43 Source: patient Mode of arrival: Family Vehicle History of Present Illness HPI Narrative: Patient is a 70-year-old male history of hypertension hyperlipidemia, depression presenting with left posterior thigh and buttock pain ongoing for 1 week. He does not remember any specific injury. He occasionally gets sharp shooting pain down his leg it sometimes hurts in his hip. But he really does not remember what happened he has no back pain. Almost pinpoint. He was reading on the Internet and thought that it might be a blood clot. He has not traveled anywhere he has not been hospitalized she has no prior history of blood clots. He denies any chest pain shortness of breath. It seems to be little bit worse with walking. He has not taken anything for pain. Related Data Home Medications Medication Instructions Recorded Confirmed alprazolam 0.25 mg tablet 0.25 mg PO Q8HP PRN Anxiety ##0 10/24/16 06/30/19 chlorthalidone 25 mg tablet 12.5 mg PO QDAY ##0 10/24/16 06/30/19 amlodipine 10 mg tablet 10 mg PO DAILY 09/25/18 06/30/19 atorvastatin 40 mg tablet 40 mg PO DAILY 09/25/18 06/30/19 lisinopril 40 mg tablet 40 mg PO DAILY 09/25/18 06/30/19 metoprolol succinate 50 mg 50 mg PO DAILY 09/25/18 06/30/19 tablet,extended release 24 hr tadalafil 5 mg tablet (Cialis) 5 mg PO DAILY 09/25/18 06/30/19 Allergies Allergy/AdvReac Type Severity Reaction Status Date / Time Penicillins [PENICILLINS] Allergy Intermediate HIVES Verified 07/31/21 17:26 Sulfa (Sulfonamide Allergy Intermediate HIVES Verified 07/31/21 17:26 Antibiotics) [SULFA (SULFONAMIDE ANTIBIOTICS)] hydrochlorothiazide Allergy Unknown Verified 07/31/21 17:26 [HYDROCHLOROTHIAZIDE] Review of Systems Review of Systems Narrative: GENERAL: Denies chills,fever HEENT: Denies throat pain RESPIRATORY: Denies dyspnea, cough, wheezing CARDIOVASCULAR: Denies chest pain, palpitations GASTROINTESTINAL: Denies nausea, vomiting MUSCULOSKELETAL: See HPI SKIN: No rash, no laceration, no pruritus NEUROLOGIC: Denies weakness, dizziness, headache, numbness 8 point review of systems is negative except for those stated above and HPI Patient History Medical History Atypical chest pain Benign prostate hyperplasia Chest wall pain High cholesterol History of inguinal hernia HTN (hypertension) Obstructive sleep apnea Palpitations Screening for colorectal cancer Transient ischemic attack, acute Surgical History H/O hernia repair Social History marital status: household members: spouse lives independently: Yes caregiver/support person: No housing: house occupational status: employed (retired) Smoking Status: Former smoker alcohol intake: never substance use type: does not use Smoking Status: Former smoker tobacco type: cigarettes alcohol intake frequency: 0-2 drinks per day Substance Use Type: does not use Exam Initial Vital Signs Initial Vital Signs: Vital Signs Temperature 97.3 F L 07/31/21 17:26 Pulse Rate 83 07/31/21 17:26 Respiratory Rate 20 07/31/21 17:26 Blood Pressure 167/96 H 07/31/21 17:26 Pulse Oximetry 97 07/31/21 17:26 Oxygen Delivery Method 07/31/21 17:26 GENERAL: Well-appearing, well-nourished and in no acute distress. CARDIOVASCULAR: peripheral pulses in tact, cap refill <2 sec RESPIRATORY: No respiratory distress, speaks in full sentences without difficulty EXTREMITIES: Normal range of motion, no clubbing or edema. Neurovascularly intact Left lower extremity posterior thigh near the buttock there is no erythema. No significant swelling appreciated. No pain behind the calf NEUROLOGICAL: Cranial nerves II through XII grossly intact. Normal gait and speech. SKIN: Warm, dry, no petechiae, no rashes or lesions. Scores Wells' Criteria for DVT Active Cancer (Treatment within 6 months): No Bedridden recently >3 days or major surgery within 4 weeks: No Calf Swelling >3cm compared to other leg: No Collateral (nonvericose) superficial veins present: No Entire leg swollen: No Localized tenderness along the deep vein system: No Pitting edema, confined to symtomatic leg: No Paralysis, paresis, or recent plaster immobilization of ext: No Previously documented DVT: No Alternative dx to DVT as likely or more likely: No Wells' criteria for DVT: 0 Course Vital Signs Vital signs: Vital Signs - 8 hr 07/31/21 17:26 07/31/21 19:10 Temperature 97.3 F L Pulse Rate 83 68 Respiratory Rate 20 18 Blood Pressure 167/96 H 148/86 H Pulse Oximetry 97 96 Oxygen Delivery Method Room Air Room Air MDM - Extremity (Nontraumatic) MDM Narrative Medical decision making narrative: Patient history signs and symptoms are not consistent with DVT. This is more likely musculoskeletal it has been ongoing for 1 week. Recommend Tylenol ibuprofen and monitoring. Discharge Plan Departure Patient Disposition: Home Clinical Impression: Muscle strain of left thigh Instructions: DI for Muscle Strain Activity Restrictions/Additional Instructions: *You have been diagnosed with probable left leg strain *What to do: At this time low risk of blood clot. However please continue to monitor. Recommend light walking and stretching. May also try [id number] medications to help with pain *Continue to take medications as directed Tylenol 650 mg every 4-6 hours if needed for [id number] pain Ibuprofen 600 mg every 6-8 hours if needed for sfgk-hs-[id number] pain *Follow up with your primary care provider in 2-3 days or call [phone] *Return to ER if you should have increasing pain swelling chest pain palpitations shortness of breath or any new, worsening or concerning symptoms Prescriptions: No Action chlorthalidone 25 MG tablet 12.5 mg PO QDAY Qty: 0 alprazolam 0.25 MG tablet 0.25 mg PO Q8HP PRN (Reason: Anxiety) Qty: 0 Rx Instructions: flying only atorvastatin 40 mg tablet 40 mg PO DAILY metoprolol succinate 50 mg tablet extended release 24 hr 50 mg PO DAILY lisinopril 40 mg tablet 40 mg PO DAILY tadalafil [Cialis] 5 mg tablet 5 mg PO DAILY amlodipine 10 mg tablet 10 mg PO DAILY Referrals: Vera Perales MD [Primary Care Provider] - Visit Report Forms: Patient Portal/API
[2021-07-31 19:10] VITALS: BP 148/86; PULSE 68; RESP 18; O2SAT 96
== END 2021-07-31 19:11 | disposition home or self-care (01) ==
PROVIDERS: Emergency Provider Emergency Medicine; PCP Internal Medicine
DX: S76.912A Strain of unspecified muscles, fascia and tendons at thigh level, left thigh, initial encounter (principal)
CPT/HCPCS: 99281

== ENCOUNTER → 2021-09-06 09:26 | Outpatient (CLI) | payer OTHER, MEDICARE, SELFPAY ==
--- NOTE | 2021-09-06 | DI.RAD.S_ITS ---
PROCEDURE: XR HIP W PEL IF DONE LT 2V INDICATIONS: Lt Hip Pain TECHNIQUE: AP pelvis with lateral view(s) of the left hip(s). COMPARISON: None. FINDINGS: Bones: No fractures or dislocations. Pelvic ring appears intact. No suspicious bony lesions. Moderate bilateral degenerative hip joint space narrowing with minimal periarticular osteophytes. No erosions. Soft tissues: The visualized bowel gas pattern is normal. No suspicious soft tissue calcifications. IMPRESSION: Moderate bilateral hip osteoarthritis. Dictated by: Ann Shell M.D. on 09/06/2021 at 12:37 Approved by: Ann Shell M.D. on 09/06/2021 at 12:37
== END ==
PROVIDERS: PCP Internal Medicine; Referring Provider Family Medicine; Visit Provider Family Medicine
DX: M16.0 Bilateral primary osteoarthritis of hip (principal)
CPT/HCPCS: 73502

== ENCOUNTER → 2021-10-30 13:42 | Outpatient (CLI) | payer OTHER, MEDICARE, SELFPAY | PROVIDERS: PCP Internal Medicine; Visit Provider Registered Nurse | DX: L03.012 Cellulitis of left finger (principal) | CPT/HCPCS: 87070; 87077; 87147; 87205 ==

== ENCOUNTER 2022-03-02 06:25 | Observation (INO) | payer OTHER, MEDICARE, SELFPAY ==
[2022-03-02] VITALS (12 sets, daily range): BP systolic 138–188; BP diastolic 81–99; PULSE 54–83; RESP 18–19; TEMP 36.3; O2SAT 96–98; BMI 31.6
--- NOTE | 2022-03-02 06:40 | DI.RAD.S_ITS ---
PROCEDURE: XR CHEST 1V INDICATIONS: chest pain TECHNIQUE: One view of the chest was acquired. COMPARISON: [facility], , XR CHEST 1V, 12/18/2018, 4:21. [facility], , CHEST 1 VIEW, 03/08/2017, 17:00. FINDINGS: Surgical changes and devices: None. Lungs and pleura: Lungs appear clear. No pleural effusions or pneumothorax. Mediastinum: Mediastinal contours appear unchanged. Heart size is within normal limits. Bones and chest wall: No suspicious bony lesions. Overlying soft tissues appear unremarkable. IMPRESSION: No acute cardiopulmonary abnormality identified. Small pulmonary nodule seen on prior CT from 2019 is not appreciated on this exam which could be due to its small size. CT chest should be considered for further evaluation if not yet performed. Dictated by: Floyd Garg M.D. on 03/02/2022 at 7:58 Approved by: Floyd Garg M.D. on 03/02/2022 at 8:02
[2022-03-02 06:52] LABS: Add Manual Diff / Slide Review NO; Basophils Absolute Auto 100 /uL (0-100); Basophils Percent Auto 1.8 % (0-2); Eosinophils Absolute Auto 200 /uL (0-450); Eosinophils Percent Auto 3.7 % (2-4); Hematocrit 45.9 % (41-53); Hemoglobin 16.1 g/dL (13.5-17.5); Lymphocytes Absolute Auto 1400 /uL (1100-4500); Lymphocytes Percent Auto 27.3 % (25-40); Mean Corpuscular Hemoglobin 29.7 PG (26-34); Mean Corpuscular Volume 84.8 fL (80-100); Monocytes Absolute Auto 700 /uL (0-900); Monocytes Percent Auto 12.8 % (3-14); Neutrophils Absolute Auto 2800 /uL (1500-7000); Neutrophils Percent Auto 54.4 % (50-75); Platelet Count 277 X10^3/uL (150-400); Red Blood Cell Count 5.42 X10^6/uL (4.5-5.9); Red Cell Distribution Width 13.6 % (11.6-14.8); White Blood Cell Count 5.2 X10^3/uL (4.5-11.0)
[2022-03-02 06:54] LABS: INR 1.1 (0.9-1.3); Prothrombin Time 12.4 SECONDS (10.1-12.7)
[2022-03-02 06:56] LABS: PTT Partial Thromboplastin Tim 33 SECONDS (26-36)
[2022-03-02 06:58] LABS: Alanine Aminotransferase 33 IU/L (<50); Alkaline Phosphatase 58 U/L (38-126); Aspartate Aminotransferase 31 IU/L (17-59); BUN Creatinine Ratio 18.9 (6-22); Bilirubin Total 0.8 mg/dL (0.2-1.3); Blood Urea Nitrogen 23 mg/dL (9-20); Calcium 9.4 mg/dL (8.4-10.2); Carbon Dioxide 26 mmol/L (22-32); Chloride 107 mmol/L (98-107); Creatine Kinase 159 U/L (55-170); Estimated Glomerular Filt Rate > 60 mL/min (>60); Glucose 105 mg/dL (80-110); Lipase 304 U/L (23-300); Potassium 4.2 mmol/L (3.4-5.1); Sodium 142 mmol/L (137-145); Total Protein 8.5 g/dL (6.3-8.2)
[2022-03-02 07:10] LABS: Troponin I < 0.012 ng/mL (0.01-0.034)
[2022-03-02 07:13] LABS: Creatine Kinase MB 1.66 ng/mL (<2.37)
--- NOTE | 2022-03-02 07:32 | ED.CHESTPAIN ---
HPI - Chest Pain General Chief Complaint: Chest Pain Stated Complaint: chest pain Time Seen by Provider: 03/02/22 06:38 Source: patient Mode of arrival: Ambulatory Limitations: no limitations History of Present Illness HPI narrative: Patient is a 71-year-old male history of hypertension hyperlipidemia presenting today with chest discomfort. He reports that 2 days ago he experienced a feeling in the center of his chest radiating down both arms as a burning sensation lasting for a couple of minutes. This morning when he got up use the restroom he experienced the same thing. During these episodes he gets sweaty forehead he feels slightly nauseous no significant shortness of breath. Bolus symptoms lasted less than 5 minutes. He is concerned because he has multiple family members who have had heart attacks in their 50s. He reports that he had stress test a couple of years ago. During that time he was having extreme fatigue. He says a petite comes and goes now. He is a nonsmoker. It does appear that he has had at least 2 stress tests 1 in 2018 and 1 in 2012. 2019 reports inferior wall artifact due to diaphragmatic attenuation. But a normal myocardial perfusion study. He also had an echo in July of 2018 showed normal EF and and ascending aorta mildly enlarged. Related Data Home Medications Medication Instructions Recorded Confirmed alprazolam 0.25 mg tablet 0.25 mg PO Q8HP PRN Anxiety ##0 10/24/16 10/30/21 chlorthalidone 25 mg tablet 12.5 mg PO QDAY ##0 10/24/16 10/30/21 amlodipine 10 mg tablet 10 mg PO DAILY 09/25/18 10/30/21 atorvastatin 40 mg tablet 40 mg PO DAILY 09/25/18 10/30/21 lisinopril 40 mg tablet 40 mg PO DAILY 09/25/18 10/30/21 metoprolol succinate 50 mg 50 mg PO DAILY 09/25/18 10/30/21 tablet,extended release 24 hr tadalafil 5 mg tablet (Cialis) 5 mg PO DAILY 09/25/18 10/30/21 Allergies Allergy/AdvReac Type Severity Reaction Status Date / Time Penicillins [PENICILLINS] Allergy Intermediate HIVES Verified 10/30/21 13:10 Sulfa (Sulfonamide Allergy Intermediate HIVES Verified 10/30/21 13:10 Antibiotics) [SULFA (SULFONAMIDE ANTIBIOTICS)] hydrochlorothiazide Allergy Unknown Verified 10/30/21 13:10 [HYDROCHLOROTHIAZIDE] Review of Systems Review of Systems ROS Unobtainable: All systems reviewed & are unremarkable except as noted in HPI and below Patient History Medical History Atypical chest pain Benign prostate hyperplasia Chest wall pain High cholesterol History of inguinal hernia HTN (hypertension) Obstructive sleep apnea Palpitations Screening for colorectal cancer Transient ischemic attack, acute Surgical History H/O hernia repair Social History marital status: household members: spouse lives independently: Yes caregiver/support person: No housing: house occupational status: employed (retired) Smoking Status: Former smoker alcohol intake: never substance use type: does not use Smoking Status: Former smoker tobacco type: cigarettes alcohol intake frequency: 0-2 drinks per day Substance Use Type: does not use Exam Initial Vital Signs Initial Vital Signs: Vital Signs Pulse Rate 68 03/02/22 06:30 Respiratory Rate 18 03/02/22 06:30 Blood Pressure 182/97 H 03/02/22 06:30 Pulse Oximetry 98 03/02/22 06:30 Oxygen Delivery Method 03/02/22 06:30 GENERAL: Alert pleasant 71-year-old male and in no acute distress. HEENT: Head atraumatic,EOMI, pupils reactive, face symmetric, moist mucous membranes CARDIOVASCULAR: Regular rate and rhythm without murmurs, rubs or gallops. RESPIRATORY: Breath sounds equal bilaterally, no wheezes rales or rhonchi. ABDOMEN: Soft, nontender. Normoactive bowel sounds all 4 quadrants. No guarding or rebound. EXTREMITIES: Normal range of motion, no clubbing or edema. Neurovascularly intact NEUROLOGICAL: Alert and oriented x4.Normal gait and speech. SKIN: Warm, dry, no laceration, no petechiae, no rashes or lesions. Scores HEART Score Heart Score history: Highly Suspicious Heart Score EKG: Normal Heart Score Age: > or = 65 years old Heart Score risk factors: > 3 risk factors or hx of atherosclerotic disease Heart Score troponin: < or = to normal limit Heart Score Total: 6 Course Orders Ordered: Acetaminophen (Acetaminophen 325 Mg Tablet) 650 mg PO Q6H PRN PRN Reason: Fever/Mild Pain (1-3) Amlodipine Besylate (Amlodipine 5 Mg Tablet) 10 mg PO DAILY [facility] Atorvastatin Calcium (Atorvastatin 20 Mg Tablet) 10 mg PO DAILY [facility] Enoxaparin Sodium (Enoxaparin 40 Mg/0.4 Ml Syringe) 40 mg SUBCUT DAILY [facility] Influenza Virus Vaccine (Influenza Hd Vaccine 0.7 Ml Syringe) 0.7 ml IM .ONCE ONE Stop: 03/03/22 09:01 Lisinopril (Lisinopril 20 Mg Tablet) 40 mg PO DAILY [facility] Naloxone HCl (Naloxone 0.4 Mg/Ml Vial) 0.2 mg IV Q2MIN PRN PRN Reason: Opiate Reversal Discontinued Medications Amlodipine Besylate (Amlodipine 5 Mg Tablet) 10 mg PO NOW ONE Stop: 03/02/22 11:17 Last Admin: 03/02/22 11:44 Dose: 10 mg Documented By: NIKKI Aspirin (Aspirin 81 Mg Chew Tab) 324 mg PO NOW ONE Stop: 03/02/22 07:25 Last Admin: 03/02/22 07:37 Dose: 324 mg Documented By: MARTIN Atorvastatin Calcium (Atorvastatin 20 Mg Tablet) 10 mg PO NOW ONE Stop: 03/02/22 11:17 Last Admin: 03/02/22 11:45 Dose: 10 mg Documented By: NIKKI Lisinopril (Lisinopril 20 Mg Tablet) 40 mg PO NOW ONE Stop: 03/02/22 11:17 Last Admin: 03/02/22 12:31 Dose: 40 mg Documented By: MARTIN Vital Signs Vital signs: Vital Signs - 8 hr 03/02/22 06:30 03/02/22 07:35 Pulse Rate 68 64 Respiratory Rate 18 18 Blood Pressure 182/97 H 188/97 H Pulse Oximetry 98 97 Oxygen Delivery Method Room Air Room Air MDM - Chest Pain Lab Data Result diagrams: 03/02/22 06:40 03/02/22 06:40 Labs: Lab Results 03/02/22 03/02/22 03/02/22 Range/Units 06:40 06:40 06:40 WBC 5.2 (4.5-11.0) X10^3/uL RBC 5.42 (4.5-5.9) X10^6/uL Hgb 16.1 (13.5-17.5) g/dL Hct 45.9 (41-53) % MCV 84.8 (80-100) fL MCH 29.7 (26-34) PG MCHC 35.0 (30-36) % RDW 13.6 (11.6-14.8) % Plt Count 277 (150-400) X10^3/uL Neut % (Auto) 54.4 (50-75) % Lymph % (Auto) 27.3 (25-40) % [place] % (Auto) 12.8 (3-14) % Eos % (Auto) 3.7 (2-4) % Baso % (Auto) 1.8 (0-2) % Neut # (Auto) 2800 (0947-0296) /uL Lymph # (Auto) 1400 (5054-3260) /uL [place] # (Auto) 700 (0-900) /uL Eos # (Auto) 200 (0-450) /uL Baso # (Auto) 100 (0-100) /uL PT 12.4 (10.1-12.7) SECONDS INR 1.1 (0.9-1.3) APTT 33 (26-36) SECONDS Sodium 142 (137-145) mmol/L Potassium 4.2 (3.4-5.1) mmol/L Chloride 107 (98-107) mmol/L Carbon Dioxide 26 (22-32) mmol/L BUN 23 H (9-20) mg/dL Creatinine 1.22 (0.66-1.25) mg/dL Estimated GFR > 60 (>60) mL/min BUN/Creatinine Ratio 18.9 (6-22) Glucose 105 (80-110) mg/dL Calcium 9.4 (8.4-10.2) mg/dL Total Bilirubin 0.8 (0.2-1.3) mg/dL AST 31 (17-59) IU/L ALT 33 (<50) IU/L Alkaline Phosphatase 58 (38-126) U/L Total Creatine Kinase 159 (55-170) U/L CK-MB (CK-2) 1.66 (<2.37) ng/mL CK-MB (CK-2) Rel Index 1.0 L (1.5-5.0) % Troponin I < 0.012 (0.01-0.034) ng/mL Total Protein 8.5 H (6.3-8.2) g/dL Lipase 304 H (23-300) U/L 03/02/22 Range/Units 09:18 WBC (4.5-11.0) X10^3/uL RBC (4.5-5.9) X10^6/uL Hgb (13.5-17.5) g/dL Hct (41-53) % MCV (80-100) fL MCH (26-34) PG MCHC (30-36) % RDW (11.6-14.8) % Plt Count (150-400) X10^3/uL Neut % (Auto) (50-75) % Lymph % (Auto) (25-40) % [place] % (Auto) (3-14) % Eos % (Auto) (2-4) % Baso % (Auto) (0-2) % Neut # (Auto) (1347-9787) /uL Lymph # (Auto) (9503-1867) /uL [place] # (Auto) (0-900) /uL Eos # (Auto) (0-450) /uL Baso # (Auto) (0-100) /uL PT (10.1-12.7) SECONDS INR (0.9-1.3) APTT (26-36) SECONDS Sodium (137-145) mmol/L Potassium (3.4-5.1) mmol/L Chloride (98-107) mmol/L Carbon Dioxide (22-32) mmol/L BUN (9-20) mg/dL Creatinine (0.66-1.25) mg/dL Estimated GFR (>60) mL/min BUN/Creatinine Ratio (6-22) Glucose (80-110) mg/dL Calcium (8.4-10.2) mg/dL Total Bilirubin (0.2-1.3) mg/dL AST (17-59) IU/L ALT (<50) IU/L Alkaline Phosphatase (38-126) U/L Total Creatine Kinase (55-170) U/L CK-MB (CK-2) (<2.37) ng/mL CK-MB (CK-2) Rel Index (1.5-5.0) % Troponin I < 0.012 (0.01-0.034) ng/mL Total Protein (6.3-8.2) g/dL Lipase (23-300) U/L ECG Data Interpretation: Normal sinus rhythm rate 65 DC interval 170 QRS [address] elevation in want to AVF without ST depression slight artifact noted ST changes in 1 are new MDM Narrative Medical decision making narrative: Patient is a 71-year-old male with multiple risk factors including hypertension hyperlipidemia and family history presenting today with some concerning symptoms in regards to chest discomfort. He is burning sensation starting in the center of his chest radiating down both arms lasting for less than 5 minutes. Comes both at rest and with slight exertion such as walking to the bathroom. He gets slightly diaphoretic and nauseous with these symptoms as well. He has had 2 previous stress test before which did not show any abnormality. MDM * differential diagnosis includes but not limited to: Acute coronary syndrome, cardiac disease, GERD, cholecystitis * Prior records reviewed: * My lab interpretation: 2- troponins CBC CMP nor * My imaging interpretation: Chest x-ray within normal limits * Clinical Decision Rules/Scores evaluated: Heart score as above high-risk * Independent discussions with: None * Social Considerations: None * Shared Decision Making: With patient Dr. Hunter hospitalist updated on patient's symptoms test results and accepts patient *Disposition: see below, along with detailed discharge instructions that have been reviewed with patient as well as indications for ED re-evaluation and additional outpatient follow up Discharge Plan Departure Patient Disposition: Admitted as Observation Clinical Impression: Chest pain Admit Date/Time: 03/02/22 10:32 Admit Provider: Eleno Sheldon
[2022-03-02] MEDS: ASPIRIN 81 MG CHEW TAB 324 MG PO (07:37)
[2022-03-02 09:54] LABS: Troponin I < 0.012 ng/mL (0.01-0.034)
--- NOTE | 2022-03-02 11:19 | DI.NM.S_ITS ---
PROCEDURE: NM EXERCISE TREADMILL NON NUC COMPARISON: None. INDICATIONS: chest pain FINDINGS: The patient exercised for 7 minutes and 24 seconds, reaching 101% of maximum predicted heart rate. Resting BP 140/90mHg. Max BP 178/88mmHg. 8.3METs, RUDDY -5%. No angina and no diagnostic ST changes with exercise. Occasional PVCs with exercise. IMPRESSION: Low risk, normal treadmill ECG only stress test with slightly above average exercise tolerance (RUDDY -5%). No angina during the study. Dictated by: Gracia Wong MD on 03/03/2022 at 13:14 Approved by: Gracia Wong MD on 03/03/2022 at 13:16
--- NOTE | 2022-03-02 11:21 | PM.HP.1 ---
History of Present Illness History of Present Illness Date Patient Seen: 03/02/22 Time Patient Seen: 10:30 Date of Onset of Symptoms: 03/01/22 Chief complaint: chest pain Narrative: Pt is 71 yo male with HTN, HLD, BPH, elev PSA presented to ED with complaints of chest discomfort. Yesterday morning around 5:00 a.m. developed crescendo chest pain while standing up at toilet. The discomfort lasted for about 2 minutes, was located across the upper chest and radiated down the arms. He describes it as a ?burning?. There is no abdominal pain, nausea or vomiting. He felt shaky during the rest of the day. Then this morning starting at about 730 he had a few more episodes of chest discomfort but this time lasting just a few seconds and coming and going. Patient has history of prior cardiac workup with a normal stress may be in April of 2018 showing a fixed defect thought to be artifact. He had an echo in June of 2019 which was normal as well. He has not had any exertional symptoms. He has been compliant with medications. Family history significant for grandfathers on both sides of [place] in their 50s but were smokers, mom of CVA at age 69, father of brain aneurysm at age 47. Patient is nonsmoker. On ED eval, initial BP 182/97, last BP 150/87 without medication intervention. Chest x-ray normal. EKG personally reviewed and shows normal sinus rhythm, normal intervals, no ST or T-wave abnormality. His troponin is negative x2. Patient History Medical History Atypical chest pain Benign prostate hyperplasia Chest wall pain High cholesterol History of inguinal hernia HTN (hypertension) Obstructive sleep apnea Palpitations Screening for colorectal cancer Transient ischemic attack, acute Surgical History H/O hernia repair Family & Social History Social History: household members spouse lives independently Yes caregiver/support person No Safety & Behavioral: Feels Safe in Current Yes Environment Tobacco & Substance use: Smoking Status Former smoker alcohol intake never alcohol intake frequency 0-2 drinks per day Substance Use Type does not use Meds Home Medications and Allergies Home Medications Medication Instructions Recorded Confirmed Type alprazolam 0.25 mg tablet 0.25 mg PO Q8HP PRN Anxiety ##0 10/24/16 10/30/21 History chlorthalidone 25 mg tablet 12.5 mg PO QDAY ##0 10/24/16 10/30/21 History amlodipine 10 mg tablet 10 mg PO DAILY 09/25/18 10/30/21 History atorvastatin 40 mg tablet 40 mg PO DAILY 09/25/18 10/30/21 History lisinopril 40 mg tablet 40 mg PO DAILY 09/25/18 10/30/21 History metoprolol succinate 50 mg 50 mg PO DAILY 09/25/18 10/30/21 History tablet,extended release 24 hr tadalafil 5 mg tablet (Cialis) 5 mg PO DAILY 09/25/18 10/30/21 History Allergies Allergy/AdvReac Type Severity Reaction Status Date / Time Penicillins [PENICILLINS] Allergy Intermediate HIVES Verified 10/30/21 13:10 Sulfa (Sulfonamide Allergy Intermediate HIVES Verified 10/30/21 13:10 Antibiotics) [SULFA (SULFONAMIDE ANTIBIOTICS)] hydrochlorothiazide Allergy Unknown Verified 10/30/21 13:10 [HYDROCHLOROTHIAZIDE] Review of Systems Review of Systems Narrative: Complete 10 point ROS otherwise negative Exam Vital Signs (past 8 hours): - 03/02/22 06:30 03/02/22 07:35 03/02/22 10:31 Pulse Rate 68 64 58 L Respiratory Rate 18 18 18 Blood Pressure 182/97 H 188/97 H 150/87 H Pulse Oximetry 98 97 97 Oxygen Delivery Method Room Air Room Air Room Air Oxygen Delivery Method Room Air Narrative Exam Narrative: General: Alert, pleasant and cooperative in no acute distress, well-developed well-nourished HEENT: Pupils equal, anicteric Neck: Carotid upstroke 2+ bilaterally, no carotid bruit, no lymphadenopathy Lungs: Clear to auscultation Heart: Normal S1 and S2, regular rate and rhythm, no murmur, gallop or rub Abdomen: Soft, nontender, no HSM Extremities: No pitting edema Neuro: Affect normal, speech normal, fully oriented Objective Labs Result Diagrams: 03/02/22 06:40 03/02/22 06:40 Labs: Laboratory Results - last 24 hr 03/02/22 03/02/22 03/02/22 06:40 06:40 06:40 WBC 5.2 RBC 5.42 Hgb 16.1 Hct 45.9 MCV 84.8 MCH 29.7 MCHC 35.0 RDW 13.6 Plt Count 277 Neut % (Auto) 54.4 Lymph % (Auto) 27.3 [place] % (Auto) 12.8 Eos % (Auto) 3.7 Baso % (Auto) 1.8 Neut # (Auto) 2800 Lymph # (Auto) 1400 [place] # (Auto) 700 Eos # (Auto) 200 Baso # (Auto) 100 PT 12.4 INR 1.1 APTT 33 Sodium 142 Potassium 4.2 Chloride 107 Carbon Dioxide 26 BUN 23 H Creatinine 1.22 Estimated GFR > 60 BUN/Creatinine Ratio 18.9 Glucose 105 Calcium 9.4 Total Bilirubin 0.8 AST 31 ALT 33 Alkaline Phosphatase 58 Total Creatine Kinase 159 CK-MB (CK-2) 1.66 CK-MB (CK-2) Rel Index 1.0 L Troponin I < 0.012 Total Protein 8.5 H Lipase 304 H 03/02/22 09:18 WBC RBC Hgb Hct MCV MCH MCHC RDW Plt Count Neut % (Auto) Lymph % (Auto) [place] % (Auto) Eos % (Auto) Baso % (Auto) Neut # (Auto) Lymph # (Auto) [place] # (Auto) Eos # (Auto) Baso # (Auto) PT INR APTT Sodium Potassium Chloride Carbon Dioxide BUN Creatinine Estimated GFR BUN/Creatinine Ratio Glucose Calcium Total Bilirubin AST ALT Alkaline Phosphatase Total Creatine Kinase CK-MB (CK-2) CK-MB (CK-2) Rel Index Troponin I < 0.012 Total Protein Lipase Assessment & Plan Assessment & Plan narrative: 1. Chest pain -patient with cardiac risk factors hypertension, hyperlipidemia and family history -patient had normal stress MIBI April 2018, normal echo June 2019 -EKG normal, chest x-ray normal, initial troponin normal -received ASA 324 mg in ED -trend troponin, telemetry -non-nuclear stress test -can hold off on echo at this time 2. Chronic hypertension -continue patient on amlodipine 10 mg q.d., lisinopril 40 mg q.d. (patient no longer on chlorthalidone) -hold patient's metoprolol XR 100 mg which he takes in PM 3. Hyperlipidemia -continue patient on his atorvastatin 10 mg q.d. DVT prophylaxis: Enoxaparin Code status: Full code Surrogate decision maker: Spouse Time Spent With Patient Critical Care time: I spent a total of [] minutes of critical care time on this patient's care today; this time is exclusive of procedural time.
[2022-03-02] MEDS: AMLODIPINE 5 MG TABLET 10 MG PO (11:44)
[2022-03-02] MEDS: ATORVASTATIN 20 MG TABLET 10 MG PO (11:45)
[2022-03-02] MEDS: lisinopriL 20 MG TABLET 40 MG PO (12:31)
[2022-03-02 17:45] LABS: COVID19 -Nasal RAPID Negative (Negative)
--- NOTE | 2022-03-02 18:57 | PC.NURSE ---
Pt arrived from ED @ 1710 A/O Denies discomfort at this time Lungs clear, SpO2 98% RA Echo and stress test possioble tomorrow. Call light w/in reach, pt calls appropriately for needs. COntinue w/plan of care
[2022-03-02 20:07] LABS: Troponin I < 0.012 ng/mL (0.01-0.034)
[2022-03-03] VITALS (7 sets, daily range): BP systolic 120–142; BP diastolic 59–81; PULSE 53–94; RESP 17–18; TEMP 36.3–36.9; O2SAT 94–98
[2022-03-03] MEDS: ATORVASTATIN 20 MG TABLET 10 MG PO (08:19)
[2022-03-03] MEDS: lisinopriL 20 MG TABLET 40 MG PO (08:19)
[2022-03-03] MEDS: AMLODIPINE 5 MG TABLET 10 MG PO (08:20)
[2022-03-03] MEDS: ENOXAPARIN 40 MG/0.4 ML SYRINGE SUBCUT (08:20)
[2022-03-03] MEDS: INFLUENZA HD VACCINE 0.7 ML SYRINGE IM (08:26)
--- NOTE | 2022-03-03 11:14 | PC.NURSE ---
Day shift: Pt off unit for stress test at approx 1110.
--- NOTE | 2022-03-03 12:08 | CM.DANOTE ---
DCP: Case received, EMR reviewed, this final inspector shuttle introduced self to patient was able to obtain information regarding pt's baseline activity level prior to hospitalization, as well as current living situation. DCP's assessment completed with information currently available. Pt 71 yo Male came in via pov to ED with Chest pain, he reported that he had radiating pain down both arms and burning sensation in his chest 2 days prior. Stress test is pending. Pt has a history of Chronic hypertension, hyperlipidemia. PCP: Dr. Vera Perales Payor: [facility] ; Medicare Met with pt in his room. He was sitting up in his bed. He confirmed that he lives in [place] with his who is his main contact. Pt reports that he drives at baseline. He denies using DME at home. Stress test is pending. Plan: Discharge home with when medically stable. Viki Charles RN Case Manager Discharge Planning/Care Management CM Discharge Assessment Start: 03/03/22 12:06 Freq: Status: Active Protocol: Document 03/03/22 12:06 CRISTAL (Rec: 03/03/22 12:08 CRISTAL [email or web address]) Discharge Planning Assessment Assigned Network Program Manager Viki Charles RN Case Manager Advance Directives? No History Provided By Patient,Medical Record Has Patient been admitted in last 30 No days? Prior Living Arrangements House Household Members spouse Type of transporation used prior to Drives own vehicle admit Independent with ADL's Yes Is patient alert and oriented? Yes Caregiver for Another No Barriers to Discharge No Transportation Arrangement will provide transportation Whiteboard Updated in Patient Room with Yes name and ext. # of Network Program Manager Review Status In Process Next Review Type Continued Stay Review
--- NOTE | 2022-03-03 14:05 | P.DS_ITS ---
History of Present Illness History of Present Illness Date Patient Seen: 03/03/22 Time Patient Seen: 14:05 Chief complaint: chest pain Narrative: Per admitting provider, Pt is 71 yo male with HTN, HLD, BPH, elev PSA presented to ED with complaints of chest discomfort. Yesterday morning around 5:00 a.m. developed crescendo chest pain while standing up at toilet. The discomfort lasted for about 2 minutes, was located across the upper chest and radiated down the arms. He describes it as a ?burning?. There is no abdominal pain, nausea or vomiting. He felt shaky during the rest of the day. Then this morning starting at about 730 he had a few more episodes of chest discomfort but this time lasting just a few seconds and coming and going. Patient has history of prior cardiac workup with a normal stress may be in April of 2018 showing a fixed defect thought to be artifact. He had an echo in June of 2019 which was normal as well. He has not had any exertional symptoms. He has been compliant with medications. Family history significant for grandfathers on both sides of [place] in their 50s but were smokers, mom of CVA at age 69, father of brain aneurysm at age 47. Patient is nonsmoker. On ED eval, initial BP 182/97, last BP 150/87 without medication intervention. Chest x-ray normal. EKG personally reviewed and shows normal sinus rhythm, normal intervals, no ST or T-wave abnormality. His troponin is negative x2. Discharge Providers Provider Date of admission: 03/02/22 10:32 Discharge Date: 03/03/22 Primary care physician: Vera Perales MD Discharge provider: Tera Vail DO Summary Hospital Course Discharge Diagnosis: 1.? Chest pain 2.? Chronic hypertension 3. Hyperlipidemia. Hospital Course: This is a 71-year-old male with a past medical history of hypertension and hyperlipidemia who presented with episodes of chest pain. The patient had no further symptoms over the course of his stay. Given his intermediate score given his risk factors, the patient was admitted for further risk stratification non nuclear stress testing. He had negative troponins over the course of his stay. EKG was reassuring without evidence of ischemia. He underwent non nuclear stress testing which was deemed low risk after evaluation by Cardiology. He was quickly discharged home, and I did recommend that he try a 14 day course of a PPI for possible GERD and follow-up with his primary care provider couple of weeks depending on his ongoing symptoms. Time Spent with Patient Time spent: Less than 30 minutes Exam Vital Signs (past 8 hours): - 03/03/22 08:59 03/03/22 08:36 03/03/22 13:26 Temperature 97.4 F L Pulse Rate 60 Respiratory Rate 18 Blood Pressure 142/81 H Pulse Oximetry 98 97 97 Oxygen Delivery Method Room Air Room Air Oxygen Flow Rate 0 Oxygen Delivery Method Room Air Oxygen Flow Rate 0 Narrative Exam Narrative: General: Alert, pleasant and cooperative in no acute distress, well-developed well-nourished Extremities: No pitting edema Neuro: Affect normal, speech normal, fully oriented Objective Labs Result Diagrams: 03/02/22 06:40 03/02/22 06:40 Labs: Laboratory Results - last 24 hr 03/02/22 03/02/22 17:01 19:25 Troponin I < 0.012 SARS-CoV-2 (PCR) Negative [facility] Medical History Atypical chest pain Benign prostate hyperplasia Chest wall pain High cholesterol History of inguinal hernia HTN (hypertension) Obstructive sleep apnea Palpitations Screening for colorectal cancer Transient ischemic attack, acute Surgical History H/O hernia repair Social History marital status: household members: spouse lives independently: Yes caregiver/support person: No housing: house occupational status: employed (retired) Smoking Status: Former smoker alcohol intake: never substance use type: does not use Discharge Plan Discharge Plan Patient Disposition: Home Provider Discharge Comment: You were admitted to the hospital with chest discomfort. Stress testing was performed and was deemed low risk. No medication changes are recommended at discharge, but you may try omeprazole (20 mg daily) for 14 days to see if it helps with any symptoms. Please follow up with your primary care provider in a couple of weeks to review symptoms and hospital ization Discharge orders & Medications Prescriptions: Continued atorvastatin 40 mg tablet 40 mg PO DAILY metoprolol succinate 50 mg tablet extended release 24 hr 50 mg PO DAILY lisinopril 40 mg tablet 40 mg PO DAILY tadalafil [Cialis] 5 mg tablet 5 mg PO DAILY amlodipine 10 mg tablet 10 mg PO DAILY Follow up/Referrals: Vera Perales MD [Primary Care Provider] - Diet/Activity/Treatments Diet: Diet as Tolerated Activity: As tolerated Visit Report/Discharge Packet Instructions: DI for Atypical Chest Pain, DI for Chest Pain, Omeprazole Stand Alone Forms: Patient Portal/API, Stroke Signs & Symptoms Discharge Data Primary Care Provider: Vera Perales Attending Provider: Eleno Sheldon
--- NOTE | 2022-03-03 14:52 | PC.NURSE ---
Day shift: Paperwork signed and all questions answered. Pt has all personal belongings. Spouse in room for teachings. Left unit at approx 1450 and he wanted to ambulate to his car. He will be driving himself home. No new MD scripts. Dr Vail did recommend trying Omeprozole for 2 weeks and this was also discussed during d/c teachings.
[2022-03-03 17:02] LABS: Albumin 4.7 g/dL (3.5-5.0); Albumin Globulin Ratio 1.2 (1.0-2.8); Globulin 3.8 g/dL (1.7-4.1); HEMOLYSIS < 15 (0-50)
== END 2022-03-03 14:54 | disposition home or self-care (01) ==
LOC: ED 10:18 → AC 10:32
PROVIDERS: Emergency Medicine; Admitting Provider Internal Medicine; Emergency Provider Emergency Medicine; PCP Internal Medicine; Referring Provider Emergency Medicine; Visit Provider Internal Medicine
DX: R07.9 Chest pain, unspecified (principal); I10 Essential (primary) hypertension; E78.5 Hyperlipidemia, unspecified; Z20.822 Contact with and (suspected) exposure to COVID-19; Z23 Encounter for immunization
CPT/HCPCS: 36415; 71045; 80053; 82550; 82553; 83690; 84484; 85025; 85610; 85730; 87635; 90471; 90662; 93005; 93017; 96372; 99284; C9803; G0378; J1650

== ENCOUNTER → 2022-04-17 10:07 | Outpatient (CLI) | payer OTHER, MEDICARE, SELFPAY ==
[2022-03-02 17:29] VITALS: BMI 31.6
== END ==
PROVIDERS: PCP Internal Medicine; Visit Provider Registered Nurse
DX: R30.0 Dysuria (principal)
CPT/HCPCS: 87077; 87086; 87186

== ENCOUNTER → 2023-05-11 15:42 | Outpatient (CLI) | payer OTHER, MEDICARE, SELFPAY ==
[2022-03-02 17:29] VITALS: BMI 31.6
== END ==
PROVIDERS: PCP Internal Medicine; Visit Provider Nurse Practitioner Family
DX: R39.9 Unspecified symptoms and signs involving the genitourinary system (principal)
CPT/HCPCS: 87077; 87086; 87186

== ENCOUNTER 2023-05-13 19:22 | Emergency (ER) | payer OTHER, MEDICARE, SELFPAY ==
[2022-03-02 17:29] VITALS: BMI 31.6
[2023-05-13] VITALS (7 sets, daily range): BP systolic 133–156; BP diastolic 71–79; PULSE 75–83; RESP 16–22; TEMP 37.2; O2SAT 93–98; BMI 31.6
[2023-05-13] MEDS: ONDANSETRON 4 MG/2 ML INJ IV (20:13)
[2023-05-13] MEDS: SODIUM CHLORIDE 0.9% 1,000 ML 1000 ML IV (20:13)
[2023-05-13 20:24] LABS: Add Manual Diff / Slide Review NO; Basophils Absolute Auto 0 /uL (0-100); Basophils Percent Auto 0.1 % (0-2); Eosinophils Absolute Auto 0 /uL (0-450); Eosinophils Percent Auto 0.3 % (2-4); Hematocrit 44.5 % (41-53); Hemoglobin 15.5 g/dL (13.5-17.5); Lymphocytes Absolute Auto 200 /uL (1100-4500); Lymphocytes Percent Auto 5.1 % (25-40); Mean Corpuscular HGB Conc 34.9 % (30-36); Mean Corpuscular Hemoglobin 30.6 PG (26-34); Mean Corpuscular Volume 87.7 fL (80-100); Monocytes Absolute Auto 200 /uL (0-900); Monocytes Percent Auto 5.2 % (3-14); Neutrophils Absolute Auto 4200 /uL (1500-7000); Neutrophils Percent Auto 89.3 % (50-75); Platelet Count 157 X10^3/uL (150-400); Red Blood Cell Count 5.08 X10^6/uL (4.5-5.9); Red Cell Distribution Width 13.6 % (11.6-14.8); White Blood Cell Count 4.7 X10^3/uL (4.5-11.0)
[2023-05-13 20:25] LABS: Alanine Aminotransferase 40 IU/L (<50); Albumin Globulin Ratio 1.1 (1.0-2.8); Alkaline Phosphatase 78 U/L (38-126); Aspartate Aminotransferase 59 IU/L (17-59); Bilirubin Total 1.2 mg/dL (0.2-1.3); Blood Urea Nitrogen 25 mg/dL (9-20); Calcium 9.3 mg/dL (8.4-10.2); Carbon Dioxide 25 mmol/L (22-32); Chloride 104 mmol/L (98-107); Estimated Glomerular Filt Rate > 60 mL/min (>60); Globulin 3.6 g/dL (1.7-4.1); Glucose 145 mg/dL (80-110); HEMOLYSIS < 15 (0-50); Lipase 264 U/L (23-300); Potassium 3.6 mmol/L (3.4-5.1); Sodium 135 mmol/L (137-145); Total Protein 7.6 g/dL (6.3-8.2)
[2023-05-13 20:26] LABS: Ictotest Urine Negative (Negative)
[2023-05-13 20:27] LABS: Urine Volume Low Vol <10mL (spun)
--- NOTE | 2023-05-13 20:30 | PC.NURSE ---
Pt also reports intermittent twinges of LEFT chest pain lasting just like a second. Provider made aware.
[2023-05-13 20:34] LABS: RBC Urine 5-10/HPF (0-5/HPF)
[2023-05-13 20:35] LABS: Bacteria Urine Moderate (10-30); Culture Indicated Urine Specimen Cultured; Mucus Urine 1+ (Negative); Squamous Epithelial Cell Urine 0-1 /HPF (0-5/HPF); WBC Urine 1-5/HPF (0-5/HPF)
--- NOTE | 2023-05-13 21:23 | ED_ITS ---
HPI - Male Genitourinary General Chief complaint: Urogenital-Male Stated complaint: post UTI/worsening symptoms Time Seen by Provider: 05/13/23 20:03 Source: patient Mode of arrival: Ambulatory History of Present Illness HPI Narrative: 72-year-old with history of hypertension, dyslipidemia, BPH, chronically elevated PSA but no formal prostate cancer diagnosis who presents with feeling overall fatigued and ill with frequency sense of incomplete emptying and hematuria that started . Patient had fevers into Sunday of the 101.5 F. has not had any flank pain. Denies any abdominal pain. He went to the walk-in clinic on Sunday was started on Macrobid had his 1st dose Sunday evening in his had 4 or 5 doses total now. Patient states temperature seemed to be improving. He is still little fatigued but not as much. He denies any new chest pain or shortness of breath today. Did have some nausea and vomiting and and has not been eating or drinking much since. He has been able to keep down his antibiotics. He states the hematuria seems to resolved, his dysuria has been improving, his frequency has been improving but he still has a little bit of sensation of incomplete emptying. States he is some chronic back pain which has been present and feels similar to this. He has not had any increase or new flank pain. He denies any abdominal pain. He has been on Pyridium. Patient notes that he has been following with urology through [place], has had imaging which showed a possible lesion and had a target biopsied on 2 separate occasions which were both negative but has been told he has suspected prostate cancer based on chronically elevated PSA. He does note he has had prostatitis in the past and states this does not feel similar. Related Data Home Medications Medication Instructions Recorded Confirmed amlodipine 10 mg tablet 10 mg PO DAILY 09/25/18 05/11/23 atorvastatin 40 mg tablet 40 mg PO DAILY 09/25/18 05/11/23 lisinopril 40 mg tablet 40 mg PO DAILY 09/25/18 05/11/23 metoprolol succinate 50 mg 50 mg PO DAILY 09/25/18 05/11/23 tablet,extended release 24 hr tadalafil 5 mg tablet (Cialis) 5 mg PO DAILY 09/25/18 05/11/23 Previous Rx's Medication Instructions Recorded nitrofurantoin 100 mg PO Q12H 7 days #14 caps 05/11/23 monohydrate/macrocrystals 100 mg capsule (Macrobid) phenazopyridine 200 mg tablet 200 mg PO TID 6 doses #6 tabs 05/11/23 (Pyridium) Allergies Allergy/AdvReac Type Severity Reaction Status Date / Time Penicillins [PENICILLINS] Allergy Intermediate HIVES Verified 05/11/23 15:50 Sulfa (Sulfonamide Allergy Intermediate HIVES Verified 05/11/23 15:50 Antibiotics) [SULFA (SULFONAMIDE ANTIBIOTICS)] hydrochlorothiazide Allergy Unknown Verified 05/11/23 15:50 [HYDROCHLOROTHIAZIDE] Review of Systems Review of Systems ROS Unobtainable: All systems reviewed & are unremarkable except as noted in HPI and below Patient History Medical History Benign prostate hyperplasia Obstructive sleep apnea Screening for colorectal cancer History of inguinal hernia Palpitations Atypical chest pain Chest wall pain Transient ischemic attack, acute High cholesterol HTN (hypertension) Surgical History H/O hernia repair Social History marital status: household members: spouse lives independently: Yes caregiver/support person: No housing: house occupational status: employed (retired) Smoking Status: Former smoker alcohol intake: never substance use type: does not use Smoking Status: Former smoker tobacco type: cigarettes alcohol intake frequency: 0-2 drinks per day Substance Use Type: does not use Exam Narrative Exam Narrative: GENERAL: Alert and oriented x three, male in mild distress. HEENT: Head normocephalic, atraumatic, EOMI, pupils reactive, face symmetric, moist mucous membranes NECK: Supple, full range of motion CARDIOVASCULAR: Regular rate and rhythm without murmurs, rubs or gallops. RESPIRATORY: Breath sounds equal bilaterally, no wheezes rales or rhonchi. ABDOMEN: Soft, nontender. Normoactive bowel sounds all 4 quadrants. No guarding or rebound, rigidity, no mass : No CVA tenderness EXTREMITIES: Normal range of motion, no clubbing or edema. Neurovascularly intact NEUROLOGICAL: Cranial nerves II through XII grossly intact. Moving all extremities SKIN: Warm, dry, no petechiae, no rashes or lesions. Initial Vital Signs Initial Vital Signs: Vital Signs Temperature 98.9 F 05/13/23 19:27 Pulse Rate 83 05/13/23 19:27 Respiratory Rate 18 05/13/23 19:27 Blood Pressure 156/73 H 05/13/23 19:27 Pulse Oximetry 98 05/13/23 19:27 Oxygen Delivery Method Room Air 05/13/23 19:27 Course Orders Ordered: ED Orders 05/13/23 20:01 CBC Auto Diff [Complete Blood Count AUTO DIFF] Stat CMP [Comprehensive Metabolic Panel] Stat Ictotest Urine Stat Lipase Stat Urine Culture Stat Urine Microscopic Stat 05/13/23 21:35 Blood Culture Stat Discontinued Medications Sodium Chloride (Normal Saline 0.9%) 1,000 mls @ 1,000 mls/hr IV BOLUS ONE Stop: 05/13/23 21:03 Last Infusion: 05/13/23 21:20 Dose: Infused Documented By: Admin: 05/13/23 20:13 Dose: 1,000 mls/hr Documented By: NIKKI Ondansetron HCl (Ondansetron 4 Mg Odt) 4 mg SL NOW PRN PRN Reason: Nausea And Vomiting Ondansetron HCl (Ondansetron 4 Mg/2 Ml Inj) 4 mg IV NOW PRN PRN Reason: Nausea And Vomiting Last Admin: 05/13/23 20:13 Dose: 4 mg Documented By: NIKKI Ondansetron HCl (Ondansetron 4 Mg Odt Prepack) 1 bottle MISC DIRECTED ONE Stop: 05/13/23 21:31 Last Admin: 05/13/23 21:45 Dose: 1 bottle Documented By: Vital Signs Vital signs: Vital Signs - 8 hr 05/13/23 19:27 05/13/23 19:46 05/13/23 20:43 Temperature 98.9 F Pulse Rate 83 79 78 Respiratory Rate 18 16 18 Blood Pressure 156/73 H 153/74 H 137/71 Pulse Oximetry 98 98 98 Oxygen Delivery Method Room Air Room Air Room Air 05/13/23 20:44 05/13/23 21:00 05/13/23 21:30 Temperature Pulse Rate 78 75 75 Respiratory Rate 22 17 Blood Pressure Pulse Oximetry 93 93 94 Oxygen Delivery Method Room Air 05/13/23 21:46 Temperature Pulse Rate 77 Respiratory Rate 17 Blood Pressure 133/79 Pulse Oximetry 97 Oxygen Delivery Method Room Air MDM - Male Genitourinary Lab Data 05/13/23 20:01 05/13/23 20:01 Labs: Lab Results 05/13/23 Range/Units 20:01 WBC 4.7 (4.5-11.0) X10^3/uL RBC 5.08 (4.5-5.9) X10^6/uL Hgb 15.5 (13.5-17.5) g/dL Hct 44.5 (41-53) % MCV 87.7 (80-100) fL MCH 30.6 (26-34) PG MCHC 34.9 (30-36) % RDW 13.6 (11.6-14.8) % Plt Count 157 (150-400) X10^3/uL Neut % (Auto) 89.3 H (50-75) % Lymph % (Auto) 5.1 L (25-40) % [place] % (Auto) 5.2 (3-14) % Eos % (Auto) 0.3 L (2-4) % Baso % (Auto) 0.1 (0-2) % Neut # (Auto) 4200 (3916-3673) /uL Lymph # (Auto) 200 L (4922-8062) /uL [place] # (Auto) 200 (0-900) /uL Eos # (Auto) 0 (0-450) /uL Baso # (Auto) 0 (0-100) /uL Sodium 135 L (137-145) mmol/L Potassium 3.6 (3.4-5.1) mmol/L Chloride 104 (98-107) mmol/L Carbon Dioxide 25 (22-32) mmol/L BUN 25 H (9-20) mg/dL Creatinine 1.19 (0.66-1.25) mg/dL Estimated GFR > 60 (>60) mL/min BUN/Creatinine Ratio 21.0 (6-22) Glucose 145 H (80-110) mg/dL Calcium 9.3 (8.4-10.2) mg/dL Total Bilirubin 1.2 (0.2-1.3) mg/dL AST 59 (17-59) IU/L ALT 40 (<50) IU/L Alkaline Phosphatase 78 (38-126) U/L Total Protein 7.6 (6.3-8.2) g/dL Albumin 4.0 (3.5-5.0) g/dL Globulin 3.6 (1.7-4.1) g/dL Albumin/Globulin Ratio 1.1 (1.0-2.8) Lipase 264 (23-300) U/L Ur Bilirubin Confirm Negative (Negative) Urine RBC 5-10/hpf H (0-5/HPF) Urine WBC 1-5/hpf (0-5/HPF) Ur Squamous Epith Cells 0-1 /hpf (0-5/HPF) Urine Bacteria Moderate (10-30) H (None) Urine Mucus 1+ H (Negative) Ur Culture Indicated? Specimen cultured Vol Urine Centrifuged Low vol <10ml (spun) A Urine Dip Bedside Urine Glucose Negative Bedside Urine Bilirubin + 1 Bedside Urine Ketone + 15 Urine Specific [place] 1.025 Bedside Urine Occult Blood +++ Bedside Urine pH 6.0 Bedside Urine Protein +++ 300 Bedside Urine Urobilinogen +/- 1mg Bedside Urine Nitrite + Positive ECG Data Attestation: I personally reviewed and interpreted this ECG as follows: Interpretation: Seventy-six rate, MT 162 QRS of 94 QTC of 429. Right axis deviation nonspecific change. [facility] Narrative Medical decision making narrative: 72-year-old male with recently diagnosed UTI he has a culture from 3 11/02/2023 which shows E coli and constantino sensitivity. Patient was started on Macrobid and Pyridium on Sunday the . He has had for 5 doses he was having fevers, he has not had flank pain and describes gradual improvement with no worsening of symptoms. Vitals here been appropriate, no changes consistent with sepsis his white count 4.7 with a hemoglobin of 15 and platelets of 157. Sodium is 135 with a potassium of 3 6, creatinine of 1.19, glucose of 145 with otherwise negative LFTs many BUN 25. Urine shows nitrates, protein, occult blood, microscopy shows 5-10 RBCs with moderate bacteria 1+ mucus 1-5 white cells. After discussion with patient discussed imaging he continues to feel improved and feels comfortable returning home. We will send blood cultures although my suspicion for bacteremia and sepsis as lower so did not send lactate and procalcitonin. Plan to continue Macrobid he has 7 days total prescribed. Discussed return precautions and if feeling worse having any persistent nausea or vomiting or any other new changes to return. We will give a short course of Zofran. Discharge Plan Departure Patient Disposition: Home Clinical Impression: Acute UTI Activity Restrictions/Additional Instructions: Your urine culture shows sensitivity to your Macrobid, the antibiotic you have been prescribed please continue this until it is completed. Your urine was cultured again today this takes about 48-72 hours to result as well as blood cultures. You will be contacted if there is any resistance on your urine culture or if you are blood cultures are positive. You can take Zofran 1 tablet every 6 hours as needed for nausea. If you have recurrent fevers, new or worsening abdominal, back or flank pain, any persistent vomiting, increasing difficulty with urination or inability to urinate, increasing hematuria or bloody urine or other new or concerning changes please return. Prescriptions: No Action phenazopyridine [Pyridium] 200 mg tablet 200 mg PO TID 0 Days Qty: 6 0RF nitrofurantoin monohyd/m-cryst [Macrobid] 100 mg capsule 100 mg PO Q12H 7 Days Qty: 14 0RF Rx Instructions: must administer with a meal/food atorvastatin 40 mg tablet 40 mg PO DAILY metoprolol succinate 50 mg tablet extended release 24 hr 50 mg PO DAILY lisinopril 40 mg tablet 40 mg PO DAILY tadalafil [Cialis] 5 mg tablet 5 mg PO DAILY amlodipine 10 mg tablet 10 mg PO DAILY Referrals: Vera Perales MD [Primary Care Provider] - Stand Alone Forms: Patient Portal/API
[2023-05-13] MEDS: ONDANSETRON 4 MG ODT PREPACK 1 BOTTLE MISC (21:45)
== END 2023-05-13 21:47 | disposition home or self-care (01) ==
PROVIDERS: Emergency Provider Emergency Medicine; PCP Internal Medicine
DX: N39.0 Urinary tract infection, site not specified (principal); M54.9 Dorsalgia, unspecified; R50.9 Fever, unspecified
CPT/HCPCS: 51798; 80053; 81003; 81015; 83690; 85025; 87040; 87086; 93005; 93010; 96361; 96374; 99283; 99284; J2405

== ENCOUNTER → 2023-07-06 10:10 | Outpatient (CLI) | payer OTHER, MEDICARE, SELFPAY ==
[2022-03-02 17:29] VITALS: BMI 31.6
--- NOTE | 2023-07-06 10:13 | DI.RAD.S_ITS ---
PROCEDURE: XR KNEE LT 4V INDICATIONS: KNEE PAIN TECHNIQUE: 4 views of the knee were acquired. COMPARISON: None. FINDINGS: Bones: No fractures or dislocations. 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 No significant patellar subluxation. No suspicious bony lesions. Soft tissues: No significant joint effusion. No suspicious soft tissue calcifications. IMPRESSION: No acute bony abnormality or significant effusion. 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 Dictated by: Solis Price M.D. on 07/06/2023 at 11:31 Approved by: Solis Price M.D. on 07/06/2023 at 11:35
== END ==
PROVIDERS: PCP Internal Medicine; Referring Provider Internal Medicine; Visit Provider Internal Medicine
DX: M17.12 Unilateral primary osteoarthritis, left knee (principal); M25.562 Pain in left knee
CPT/HCPCS: 73564